=== PATIENT | male | born 1935 | race Hispanic/Latino ===

== ENCOUNTER 2017-07-12 02:45 | Inpatient (IN) | payer MEDICARE ==
[2017-07-12 03:38] LABS: #Eosinphils 0.3 thou/uL (0.0-0.7); #Lymphocytes 1.6 thou/uL (1.20-3.40); #Monocytes 0.9 thou/uL (0.11-0.59); #Neutrophils 7.8 thou/uL (1.40-6.50); %Basophils 0.1 % (0.0-1.0); %Eosinophils 2.9 % (0.0-10.0); %Lymphocytes 15.1 % (21.0-51.0); %Monocytes 8.4 % (0.0-10.0); Hematocrit 40.9 % (42.0-52.0); Mean Platelet Volume 8.3 fL (7.4-10.4); Red Blood Cell (RBC) Count 3.98 mill/uL (4.70-6.10); White Blood Cell (WBC) Count 10.7 thou/uL (4.8-10.8)
[2017-07-12 04:01] LABS: Bilirubin Negative (Negative); Blood, Urine Large (Negative); Glucose, Urine (Dipstick) 100 mg/dL (Negative); Ketone, Urine 15 mg/dL (Negative); Nitrite Positive (Negative); Protein, Urine (Dipstick) > or equal to 300 mg/dL (Neg-Trace); Urobilinogen > or = 8.0 mg/dL (0.2-1.0)
[2017-07-12 04:03] LABS: ALT (SGPT) 13 U/L (8-55); AST (SGOT) 14 U/L (5-34); Alkaline Phosphatase 131 U/L (40-150); Anion Gap 13 mmol/L (10-20); BUN (Urea Nitrogen) 27 mg/dL (8.4-25.7); Bilirubin, Total 0.5 mg/dL (0.2-1.2); Calc. Creatinine Clearance 0 mL/min (70-130); Calcium 9.6 mg/dL (7.8-10.44); Carbon Dioxide 28 mmol/L (23-31); Chloride 102 mmol/L (98-107); Estimated GFR-MDRD 45; Protein, Total 7.4 g/dL (5.8-8.1)
[2017-07-12 04:05] LABS: Bacteria/HPF 1+ HPF (None Seen); Hyaline Casts/LPF NONE SEEN LPF (0-3 Hyaline); RBC/HPF GREATER THAN 50-TNTC HPF (0-3); Squamous Epithelial None Seen HPF (0-3); WBC/HPF 21-50 HPF (0-3)
[2017-07-12 06:38] LABS: #Lymphocytes 0.8 thou/uL (1.20-3.40); #Monocytes 0.8 thou/uL (0.11-0.59); #Neutrophils 10.9 thou/uL (1.40-6.50); %Basophils 0.1 % (0.0-1.0); %Eosinophils 0.3 % (0.0-10.0); %Monocytes 6.4 % (0.0-10.0); Hematocrit 37.5 % (42.0-52.0); Red Blood Cell (RBC) Count 3.66 mill/uL (4.70-6.10); White Blood Cell (WBC) Count 12.5 thou/uL (4.8-10.8)
[2017-07-12 06:44] LABS: Prothrombin Time 13.9 SEC (12.0-14.7)
[2017-07-12] MEDS ORDERED: Fentanyl 100 MCG/2 ML VIAL ONE (07:49)
[2017-07-12] MEDS ORDERED: Levofloxacin 500 mg/D5W 100 ml Premix Bag ONE (08:09)
--- NOTE | 2017-07-12 08:10 | CT ---
CT ABDOMEN AND PELVIS NONCONTRAST: HISTORY: Hematuria. COMPARISON: 05/21/14. FINDINGS: Each renal collecting system and ureter are decompressed. Calcifications at each renal hilum are fav ored to be vascular in origin. Lobulated exophytic cyst at the superior pole of the right kidney is similar in appearance to the prior exam. Lack of contrast limits evaluation for other abnormalities. Within the superior aspect of the urinar y bladder, a lobulated heterogeneous hyperdense lesion measures up to 7.7 cm greatest oblique diamete r on the axial images. It is at the posterior aspect of the urinary bladder. The prostate gland remains heterogeneous, enlarged, and contains dystrophic calcification. There are degenerative changes of the lumbar spine. 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 IMPRESSION: 1. The large lobulated hyperdense lesion within the posterior superior aspect of the urinary bladder likely represents hemorrhage primarily, although an underlying mucosal based lesion could easily be present. No urinary tract obstruction or calcification are reliably demonstrated. Please consider u rologic evaluation. 2. Atherosclerosis. 3. Chronic-type findings are otherwise stable. POS: EDEN
--- NOTE | 2017-07-12 08:35 | CON ---
DATE OF CONSULTATION: 07/12/2017 PRIMARY CARE PHYSICIAN: Angeles Delgadillo M.D. MANAGER ONCOLOGY: Claudia Lu M.D. REASON FOR CONSULT: Hemorrhagic cystitis with clot retention. HISTORY OF PRESENT ILLNESS: Mr. Nieto is an 81-year-old male with history of BPH, however, patient denies prior history of urinary retention, history of coronary artery disease, who presented to the emergency room with 1 day history of acute gross hematuria. He denies history of dysuria, fever, nausea or vomiting. He denies history of prostate cancer. at bedside. Urine has selma hematuria, CT of the abdomen and pelvis was obtained per my request on stone contrast due to renal insufficiency demonstrating large mass, likely clot in the bladder with no significant hydronephrosis. This is a prelim read by me as Radiology read is pending thus far. The patient was seen at bedside, emergent Urology consultation obtained as he presented with blood pressure 86/ 50. As there is concern for anemia due to hemorrhagic cystitis, emergent consultation was obtained. Upon assessment, patient currently appears comfortable. I attempted to place a Lawrence catheter. There was some resistance at the meatus passing a 22 Polish catheter; however, I was able to pass the catheter to the level of the bladder and had difficulty irrigating due to clot retention demonstrating selma dark hematuria. PAST MEDICAL HISTORY: Coronary artery disease, GERD, hypertension, and hyperlipidemia. PAST SURGICAL HISTORY: CABG, left ankle surgery by Dr. Abdullahi. SOCIAL HISTORY: Ex-smoker. He quit approximately 20 years ago after he underwent a CABG. He previously smoked at least 2 packs per day. Prior use of alcohol use, whiskey every night. Denies illicit drug use. Lives with his . ALLERGIES: He is allergic to PENICILLIN. REVIEW OF SYSTEMS: Ten point review of systems as above, otherwise noncontributory. PHYSICAL EXAMINATION: CURRENT VITAL SIGNS: 101/53, 65, 16, 95% on room air. GENERAL: Patient is resting comfortably. HEENT: Unremarkable. HEART: Regular rate. LUNGS: Clear. ABDOMEN: Soft. There is no gross suprapubic tenderness on exam. GENITOURINARY: Uncircumcised phallus, meatus is grossly unremarkable. Testes descended. Prostate does demonstrate large volume greater than 40-50 grams, mildly diffusely firm. No fluctuance is appreciated. EXTREMITIES: No cyanosis, clubbing or edema. LABORATORY DATA: White count 12, hemoglobin 12.3, platelet 173. INR is 1.1. INR is 1.1. Urinalysis red, positive nitrites, greater than 50 rbc's, 20-50 wbc 's, no epithelial, 1+ bacteria. INR is 1.1, PTT of 33. BEDSIDE PROCEDURE: A 22 Polish 3-way Lawrence catheter was placed, it did have some resistance passing at the level of the meatus, however, able to make to the level of the bladder with selma hematuria. Difficulty irrigating the catheter due to clot retention. CBI tubing was attached; however, not started. CT of the abdomen and pelvis final read pending. There is no gross evidence of hydronephrosis, prostate volume approximately 40-50 grams with prostatic calcification. There is a very large filling defect in the bladder, likely consistent with clot; however, I cannot rule out other pathology such as bladder tumor. IMPRESSION/PLAN: 1. Mr. Nieto is an 81-year-old male with history of coronary artery disease. 2. Hypertension. 3. Hyperlipidemia. 4. Status post coronary artery bypass graft, who presents with a 1 day history of gross hematuria. Currently, patient's hemoglobin is stable; however, he had hypotensive episode, improved. His coagulation profile is unremarkable. As he has significant clots within the bladder, I cannot rule out other pathology such as bladder tumor. Due to inability to efficiently irrigate his bladder, advised regarding cystoscopy, evacuation of clots, transurethral resection of the prostate, transurethral resection of bladder tumor if clinically indicated. Patient has been n.p.o. He is typed and crossed. Broad-spectrum antibiotic oncall to OR. MTDD
[2017-07-12] MEDS ORDERED: hydrALAZINE 20 MG/ML VIAL SLOW IVP PRN ×4 (09:40→12:46)
[2017-07-12] MEDS ORDERED: Bisacodyl 10 MG SUPP PR PRN ×2 (09:40→12:46)
[2017-07-12] MEDS ORDERED: HYDROcodone/Acetaminophen 7.5/325 mg Tablet PO PRN ×4 (09:40→12:47)
[2017-07-12] MEDS ORDERED: Morphine 4 MG/ML Carpuject IVP PRN (09:40)
[2017-07-12] MEDS ORDERED: Mag-Al 1200 mg/1200 mg/30 ML UDCUP PO PRN ×2 (09:40→12:46)
[2017-07-12] MEDS ORDERED: Sodium Chloride 0.9% 1,000 ML IV SCH ×2 (09:45→13:00)
--- NOTE | 2017-07-12 10:15 | OP ---
DATE OF PROCEDURE: 07/12/2017 PREOPERATIVE DIAGNOSES: An 81-year-old male with history of coronary artery disease who presents with acute onset of gross hematuria with clot retention. POSTOPERATIVE DIAGNOSES: An 81-year-old male with history of coronary artery disease who presents with acute onset of gross hematuria with clot retention. PROCEDURES PERFORMED: Cystoscopy, evacuation of bladder clots, fulguration of prostatic bleed, channel TURP, meatal calibration 22 [place] dilated to 32 [place] Erica sounds SURGEON: Elke Givens D.O. ANESTHESIA: General. IV FLUIDS: 800 mL. ESTIMATED BLOOD LOSS: Approximately 50 mL. DRAINS: 24 [place] 30 mL, with 40 mL insufflated to gravity, CBI with clear output. COMPLICATIONS: None apparent. SPECIMEN: Transurethral resection of the prostate. INDICATIONS FOR THE PROCEDURE AND HISTORY: Mr. Nieto is an 81-year-old male with history of coronary artery disease status post CABG, who presented with acute onset of gross hematuria. He denied history of dysuria, prior history of urinary retention. CT demonstrated large heterogenous filling defect consistent with clot versus possible other etiology such as malignancy could not be ruled out. He had an episode of hypotension. Due to large clots, inablility to irrigate at bedside, advised re emergent evacuation of clots and exam under anesthesia advised. Risks and complications of the procedure was reviewed with patient and in detail including, but not limited to, bleeding, pain, infection, injury to adjacent organs, urosepsis, bladder/ ureteral injury, sepsis reviewed. All questions were answered to his satisfaction and he desires to proceed. DESCRIPTION OF THE PROCEDURE: After an informed consent is signed, the patient is taken to the operating room. He was provided with broad spectrum antibiotics. He underwent a meatal dilatation, as I did have difficulty passing a 20 [place] catheter at bedside. The meatus was calibrated from 22-32 [place] uneventfully. A 21-[place] cystoscope was subsequently passed without any issues. The prostatic urethra demonstrated moderately obstructing prostate with a small component of high median bar and a small intravesical median lobe. The bladder was entered. I could not see, because there was a large amount of adherent clot. Therefore, I did transition to a 26-[place] resectoscope with a visual obturator. Using the Gene evacuator, we evacuated a large amount of clots. We repeated the cystoscopy with a gyrus resectoscope. I did not see any bladder masses. The source of bleeding appeared to be coming from the bladder neck /prostatic oozing. I tried to fulgurate the bladder neck/prostate however, this did not adequately take care of the prostatic bleed. Therefore, I did perform a channel TURP obtaining hemostasis of the deeper tissue. At the end of the procedure, the bladder neck was open with no significant source of bleeding residual. Prostatic urethra was fulgurated as needed . Cystoscopy after fulguration channel TURP demonstrated normal bladder mucosa with no evidence of intravesical bladder mass or stone. UOs were kept at a harm's way, well away from the bladder neck. After the procedure, all prostatic chips were evacuated with the Medialets evacuator and sent for pathologic specimen. A 24- [place] three-way Lawrence catheter was able to be passed without difficulty. A 40 mL was insufflated into the balloon. He was placed on gravity with CBI demonstrating clear output. He will be continued on CBI, urine culture is pending from the emergency room. We will continue to monitor CBC, BMP. MTDD
[2017-07-12 10:41] LABS: #Lymphocytes 0.6 thou/uL (1.20-3.40); #Monocytes 0.4 thou/uL (0.11-0.59); #Neutrophils 12.6 thou/uL (1.40-6.50); %Basophils 0.2 % (0.0-1.0); %Eosinophils 0.1 % (0.0-10.0); %Lymphocytes 4.4 % (21.0-51.0); %Monocytes 3.2 % (0.0-10.0); Hematocrit 39.2 % (42.0-52.0); Mean Platelet Volume 7.9 fL (7.4-10.4); Red Blood Cell (RBC) Count 3.82 mill/uL (4.70-6.10); White Blood Cell (WBC) Count 13.7 thou/uL (4.8-10.8)
[2017-07-12] MEDS ORDERED: Glycopyrrolate 0.2 MG/ML 5 ML SYRINGE ONE (10:49)
[2017-07-12] MEDS ORDERED: Ondansetron HCl/PF 4 MG/2 ML Vial ONE (10:49)
[2017-07-12] MEDS ORDERED: PHENYLEPHRINE-NS 100 MCG/ML 10 ML SYRINGE ONE (10:49)
[2017-07-12] MEDS ORDERED: Lidocaine 1% PF 5 ML VIAL ONE (10:49)
[2017-07-12] MEDS ORDERED: Dexamethasone 20 MG/5 ML VIAL ONE (10:49)
[2017-07-12] MEDS ORDERED: Propofol 200 MG/20 ML VIAL ONE (10:49)
[2017-07-12 10:59] LABS: Anion Gap 10 mmol/L (10-20); BUN (Urea Nitrogen) 24 mg/dL (8.4-25.7); Calc. Creatinine Clearance 0 mL/min (70-130); Calcium 8.9 mg/dL (7.8-10.44); Carbon Dioxide 27 mmol/L (23-31); Chloride 105 mmol/L (98-107); Estimated GFR-MDRD 59
[2017-07-12] MEDS ORDERED: HYDROcodone/Acetaminophen 5/325 mg Tablet PO PRN (12:42)
[2017-07-12] MEDS ORDERED: Ondansetron HCl/PF 4 MG/2 ML Vial IVP PRN (12:42)
[2017-07-12] MEDS ORDERED: Morphine 4 MG/ML VIAL SLOW IVP PRN ×2 (12:47→12:48)
[2017-07-12 13:37] LABS: Troponin I 0.011 ng/mL (< 0.028)
--- NOTE | 2017-07-12 13:38 | HP ---
CHIEF COMPLAINT: Blood in the urine. HISTORY OF PRESENT ILLNESS: This is an 81-year-old pleasant gentleman with a history of BPH, came in to the hospital with blood in the urine. He says that he was apparently okay for about a day or two, but he had some difficulty urinating the last couple of days, but yesterday in the evening when he w ent to pee, he had some burning sensation and saw some blood in the urine. He was concerned and lisa buenrostro came to the hospital for further evaluation and treatment. A CT scan of the abdomen and pelvis was done with stone protocol was done that showed a large amount of mass, likely clot in the bladder wit h no significant hydronephrosis. Dr. Elke Givens was consulted in the ER and due to a brief ep isode of hypotension and concern of anemia due to hemorrhagic cystitis, the patient underwent cystosc opy with clearing of the clots, and fulguration of the prostate. The patient has been admitted for o bservation of the hemoglobin and for continuous bladder irrigation. The patient denies any fever or chills at this point. PAST MEDICAL HISTORY: GERD, hyperlipidemia, hypertension, coronary artery disease, status post CABG. PAST SURGICAL HISTORY: Left foot surgery, CABG. SOCIAL HISTORY: Ex-smoker, quit 20 years ago. Previously smoked 2 packs per day. Prior use of alco hol, drinks whiskey every night. Denies illicit drug use. Lives with . ALLERGIES: PENICILLIN and RANOLAZINE. MEDICATIONS: Please see MAR. FAMILY HISTORY: Negative for diabetes and hypertension. REVIEW OF SYSTEMS: Significant for hematuria, otherwise no fever, no chills, no headache, no appetit e changes. No cough, no chest pain, diarrhea, dysuria or polyuria. No memory or mood changes. No n odalys pain. PHYSICAL EXAMINATION: VITAL SIGNS: Blood pressure right now is 149/68, temperature afebrile, respirations 20, pulse is 82. GENERAL: Patient is lying in bed in no apparent distress. HEENT: Atraumatic and normocephalic. Pupils equally round, react to light. Extraocular movements i ntact. Mucous membranes moist. NECK: No JVD. CHEST: Breath sounds heard. There are no rales or rhonchi. HEART: S1, S2, no murmurs or gallops. ABDOMEN: Soft. EXTREMITIES: No cyanosis, clubbing or edema. Distal pulses present. NEUROLOGIC: Alert, awake, oriented. No cranial deficits. No sensorimotor deficits. LABORATORY DATA: WBC count is 12.5, hemoglobin is 12.3. UA shows nitrite, WBC in the urine 21-50. Potassium is 3.9, creatinine is 1.19. The patient's EKG shows some nonspecific ST-T wave changes, he is in normal sinus rhythm, rate 81. ASSESSMENT AND PLAN: 1. Hematuria, status post cystoscopy with clearing of the clots, and fulguration of the prostate. W e will continue CBI. Hold aspirin and monitor H&H, transfuse as needed. 2. Anemia, combination of megaloblastic and acute blood loss anemia. We will transfuse as needed an d monitor H&H. 3. Urinary tract infection. Do urinary cultures and put the patient on Levaquin. 4. Coronary artery disease status post coronary artery bypass graft. Check troponins. The patient has no chest pain at the present moment. Evidence of hypertension has resolved. 5. Sequential compression devices for deep venous thrombosis prophylaxis. 6. Gastroesophageal reflux disease, stable. 7. Hyperlipidemia, stable. I will work with Dr. Givens in further caring for the patient.
[2017-07-12 14:14] LABS: Hematocrit 38.3 % (42.0-52.0)
[2017-07-12] MEDS: Sodium Chloride 0.9% 1,000 ML IV SCH (14:51)
[2017-07-12 19:29] LABS: Troponin I Less than 0.010 ng/mL (< 0.028)
[2017-07-12] MEDS: Acetaminophen 325 MG TAB PO PRN (20:48)
[2017-07-12] MEDS: Docusate 100 MG CAP PO SCH (20:49)
[2017-07-12] MEDS ORDERED: Docusate 100 MG CAP PO SCH (21:00)
[2017-07-12 22:25] LABS: Hematocrit 35.7 % (42.0-52.0)
[2017-07-13] MEDS: Sodium Chloride 0.9% 1,000 ML IV SCH (00:07)
[2017-07-13] MEDS: Acetaminophen 325 MG TAB PO PRN (03:23)
[2017-07-13 05:36] LABS: #Lymphocytes 1.2 thou/uL (1.20-3.40); #Monocytes 1.5 thou/uL (0.11-0.59); #Neutrophils 10.8 thou/uL (1.40-6.50); %Basophils 0.1 % (0.0-1.0); %Eosinophils 0.1 % (0.0-10.0); %Lymphocytes 8.9 % (21.0-51.0); %Monocytes 10.8 % (0.0-10.0); Hematocrit 35.9 % (42.0-52.0); Mean Platelet Volume 8.4 fL (7.4-10.4); Red Blood Cell (RBC) Count 3.54 mill/uL (4.70-6.10); White Blood Cell (WBC) Count 13.5 thou/uL (4.8-10.8)
[2017-07-13 05:46] LABS: Anion Gap 10 mmol/L (10-20); BUN (Urea Nitrogen) 19 mg/dL (8.4-25.7); BUN/Creatinine Ratio 16.96; Calc. Creatinine Clearance 62 mL/min (70-130); Calcium 8.8 mg/dL (7.8-10.44); Carbon Dioxide 25 mmol/L (23-31); Chloride 107 mmol/L (98-107); Estimated GFR-MDRD 63; Phosphorus 2.7 mg/dL (2.3-4.7)
[2017-07-13] MEDS: Dutasteride 0.5 MG CAP PO SCH (08:27)
[2017-07-13] MEDS: Docusate 100 MG CAP PO SCH ×2 (08:27→20:26)
[2017-07-13] MEDS: Tamsulosin HCl 0.4 MG CAP PO SCH (08:28)
--- NOTE | 2017-07-13 08:37 | PRG ---
DATE OF SERVICE: 07/13/2017 INPATIENT GENITOURINARY PROGRESS NOTE SUBJECTIVE: The patient is doing well. PHYSICAL EXAMINATION: VITAL SIGNS: T-max of 99.9, 98, 68, 16, 94, 177/73. ABDOMEN: Soft, nontender, nondistended. GENITOURINARY: Lawrence catheter demonstrates a very low CBI with lavern pink- tinged urine. PERTINENT LABORATORY DATA: White blood cell count 13, hemoglobin 11.7, presented with hemoglobin of 12.3. Coagulation profile: INR is 1.1. Renal function stable at 1.12. Urine culture is pending. On Levaquin. IMPRESSION AND PLAN: Mr. Nieto is an 81-year-old male who presented with gross hematuria, clot retention, status post cystoscopy, evacuation of clots, fulguration of prostatic bleed, transurethral resection of prostate channel. His hemoglobin has decreased somewhat, however, possibility of hemodilution effect cannot be completely excluded as his urine output is relatively clear on low rate continuous bladder irrigation. Continue to monitor CBC. Await final urine culture. Continue antibiotic therapy/ IVF as there is a urinary tract infection component to his gross hematuria. Continue Lawrence catheter for now, we will hold continuous bladder irrigation and monitor urine output. Continue Flomax and Avodart. MTDD
[2017-07-13] MEDS ORDERED: Tamsulosin HCl 0.4 MG CAP PO SCH (09:00)
[2017-07-13] MEDS: Isosorbide Mononitrate 20 MG TAB PO SCH (12:51)
[2017-07-13 13:46] LABS: Hematocrit 35.8 % (42.0-52.0)
--- NOTE | 2017-07-13 13:50 | PQF ---
CLINICAL DOCUMENTATION IMPROVEMENT CLARIFICATION FORM: ICD-10 Updated PLEASE DO AN ADDENDUM TO THE PROGRESS NOTE WITH ANY DOCUMENTATION UPDATES OR ADDITIONS AND CARRY THROUGH TO DC SUMMARY. THANK YOU. DATE: 07/13 ATTN : DR. Lynette CHANDRA Please exercise your independent, professional judgment in responding to the clarification form. Clinical indicators are provided on the bottom of this form for your review Please check appropriate box(s): [ ] Acute Renal Failure (ARF) / Acute Kidney Injury (LAUREN) [ ] Other Etiology or underlying conditions related to the diagnosis of ARF/ LAUREN: [ ] Acute on Chronic Renal Failure please specify Stage of CKD (see below) [ ] CKD without ARF/LAUREN please specify Stage of CKD [ ] Other diagnosis [ ] Unable to determine National Kidney Foundation Guidelines for CKD Staging Stage I Kidney damage with normal or increased GFR GFR > 90 Stage II Kidney damage with mildly decreased GFR GFR 60-89 Stage III Kidney damage with moderately decreased GFR GFR 30-59 Stage IV Kidney damage with severely decreased GFR GFR 16-29 Stage V Kidney failure GFR<15 ESRD End Stage Renal Disease On dialysis For continuity of documentation, please document condition throughout progress notes and discharge summary. Thank You. CLINICAL INDICATORS - SIGNS / SYMPTOMS / LABS BUN: 27 CR: 1.50 GFR: 45 (ON ADMIT, 07/12) 24 1.19 59 (07/12) 19 1.12 63 (07/13) RISK FACTORS: UTI W/GROSS HEMATURIA ACUTE BLOOD LOSS ANEMIA TREATMENTS: IVF (NS 07/12 - PRESENT) IV ANTIBIOTIC (LEVAQUIN 07/12 - PRESENT) THANK YOU! Annalisa (This form is maintained as a part of the permanent medical record) 2014 [employer] All Rights Reserved Annalisa Dorsey RN, BSN [email or web address] Office: [phone] [facility]
--- NOTE | 2017-07-13 16:01 | PDOC.PN ---
- Subjective Encounter Start Date: 07/13/17 Encounter Start Time: 16:00 Patient seen and examined. No new complaints. No overnight events - Objective MAR Reviewed: Yes Vital Signs & Weight: Vital Signs (12 hours) Temp Pulse Resp BP Pulse Ox 07/13/17 11:36 97.7 F 69 16 133/71 98 07/13/17 08:00 99.2 F 66 16 96 07/13/17 07:09 99.2 F 66 16 157/66 H 96 Weight Weight 190 lb I&O: 07/12/17 07/13/17 07/14/17 06:59 06:59 06:59 Output Total 2325 Balance -2325 Result Diagrams: 07/13/17 13:36 07/13/17 05:18 Additional Labs: Accuchecks 07/13/17 07/12/17 05:15 20:58 POC Glucose 117 H 113 H Phys Exam - Physical Examination Constitutional: NAD HEENT: PERRLA Neck: no JVD Respiratory: no wheezing Cardiovascular: RRR Gastrointestinal: non-tender Musculoskeletal: no edema Neurological: normal sensation, moves all 4 limbs Psychiatric: A&O x 3 Dx/Plan (1) Hematuria Code(s): R31.9 - HEMATURIA, UNSPECIFIED Status: Acute (2) UTI (urinary tract infection) Status: Acute (3) Renal failure (ARF), acute on chronic Code(s): N17.9 - ACUTE KIDNEY FAILURE, UNSPECIFIED; N18.9 - CHRONIC KIDNEY DISEASE, UNSPECIFIED Status: Acute (4) CAD (coronary artery disease) Code(s): I25.10 - ATHSCL HEART DISEASE OF [place] CORONARY ARTERY W/O ANG PCTRS Status: Chronic (5) GERD (gastroesophageal reflux disease) Code(s): K21.9 - GASTRO-ESOPHAGEAL REFLUX DISEASE WITHOUT ESOPHAGITIS Status: Chronic (6) HLD (hyperlipidemia) Code(s): E78.5 - HYPERLIPIDEMIA, UNSPECIFIED Status: Chronic (7) HTN (hypertension) Code(s): I10 - ESSENTIAL (PRIMARY) HYPERTENSION Status: Chronic Qualifiers: - Plan * cont abx * f/u culture of urine * cont current care * f/u urology plan * f/u h/h
[2017-07-13 17:33] LABS: Anion Gap 10 mmol/L (10-20); BUN (Urea Nitrogen) 17 mg/dL (8.4-25.7); Calc. Creatinine Clearance 63 mL/min (70-130); Calcium 9.4 mg/dL (7.8-10.44); Carbon Dioxide 28 mmol/L (23-31); Chloride 102 mmol/L (98-107); Estimated GFR-MDRD 63
[2017-07-13 23:06] VITALS: BMI 29.7
[2017-07-14] MEDS ORDERED: Mag-Al 1200 mg/1200 mg/30 ML UDCUP PO SCH (05:00)
[2017-07-14 05:17] LABS: #Eosinphils 0.1 thou/uL (0.0-0.7); #Lymphocytes 1.7 thou/uL (1.20-3.40); #Monocytes 1.1 thou/uL (0.11-0.59); #Neutrophils 10.5 thou/uL (1.40-6.50); %Basophils 0.2 % (0.0-1.0); %Eosinophils 0.7 % (0.0-10.0); %Lymphocytes 12.5 % (21.0-51.0); %Monocytes 8.2 % (0.0-10.0); Mean Platelet Volume 8.1 fL (7.4-10.4); Red Blood Cell (RBC) Count 3.83 mill/uL (4.70-6.10); White Blood Cell (WBC) Count 13.4 thou/uL (4.8-10.8)
[2017-07-14 06:17] LABS: Troponin I Less than 0.010 ng/mL (< 0.028)
--- NOTE | 2017-07-14 08:17 | PRG ---
DATE OF SERVICE: 07/14/2017 SUBJECTIVE: The patient without complaints. OBJECTIVE: VITAL SIGNS: Stable. I's and O's, CBI held for 24 hours with clear yellow urine, 3350 in, and 5700 out. ABDOMEN: Soft, nontender, nondistended. GENITOURINARY: Lawrence catheter removed for voiding trial. We will continue to monitor his voiding st atus. IMAGING: Urine culture negative thus far. Pathology grossly negative for prostatic malignancy. IMPRESSION/PLAN: Mr. Nieto is an 81-year-old male who presented with clot retention, gross hematu ivory, status post channel transurethral resection of the prostate, evacuation of clots, fulguration of prostatic bleed. His urine output has been clear for 24 hours. Lawrence catheter removed. H&H is sta ble. We will continue to monitor his voided urine at bedside. Continue antibiotic regimen, Flomax, Avodart. No aspirin, ibuprofen products advised due to presenting pathology of hematuria with clot r etention.
[2017-07-14] MEDS ORDERED: Bisacodyl 10 MG SUPP PR PRN (08:19)
[2017-07-14] MEDS: Docusate 100 MG CAP PO SCH ×2 (08:32→21:32)
[2017-07-14] MEDS: Dutasteride 0.5 MG CAP PO SCH (08:32)
[2017-07-14] MEDS: Isosorbide Mononitrate 20 MG TAB PO SCH (08:32)
[2017-07-14] MEDS: Tamsulosin HCl 0.4 MG CAP PO SCH (08:33)
[2017-07-14] MEDS ORDERED: Bisacodyl 10 MG SUPP PR SCH (10:45)
[2017-07-14 11:39] LABS: Troponin I 0.164 ng/mL (< 0.028)
--- NOTE | 2017-07-14 12:38 | EKG ---
Test Reason : STAT Blood Pressure : / mmHG Vent. Rate : 086 BPM Atrial Rate : 086 BPM P-R Int : 172 ms QRS Dur : 090 ms QT Int : 380 ms P-R-T Axes : 059 -05 019 degrees QTc Int : 454 ms Normal sinus rhythm Abnormal ECG Confirmed by BUBBA APPIAH ([id number]) on 07/14/2017 12:37:53 PM Referred By: KINZA Confirmed By:BUBBA APPIAH
[2017-07-14 14:03] LABS: Anion Gap 12 mmol/L (10-20); BUN (Urea Nitrogen) 17 mg/dL (8.4-25.7); Calc. Creatinine Clearance 69 mL/min (70-130); Calcium 8.9 mg/dL (7.8-10.44); Carbon Dioxide 21 mmol/L (23-31); Chloride 101 mmol/L (98-107); Estimated GFR-MDRD 71
[2017-07-14 14:08] LABS: Troponin I 0.285 ng/mL (< 0.028)
--- NOTE | 2017-07-14 14:52 | PDOC.PN ---
- Subjective Encounter Start Date: 07/14/17 Encounter Start Time: 14:51 had chest pain and high bp last night trop are elevated no cp now at present time no n/v urine clean no f/c - Objective MAR Reviewed: Yes Vital Signs & Weight: Vital Signs (12 hours) Temp Pulse Resp BP BP Pulse Ox 07/14/17 11:05 97.9 F 75 20 133/65 97 07/14/17 07:00 99 F 74 16 126/59 L 95 07/14/17 04:20 98.9 F 72 15 96 07/14/17 03:57 79 123/63 07/14/17 03:21 74 183/69 H Weight Weight 190 lb I&O: 07/13/17 07/14/17 07/15/17 06:59 06:59 06:59 Intake Total 3350 Output Total 6239 3020 Balance -8841 -5247 Result Diagrams: 07/14/17 04:43 07/14/17 13:22 Phys Exam - Physical Examination Constitutional: NAD HEENT: PERRLA Neck: no JVD Respiratory: no wheezing Cardiovascular: no significant murmur Gastrointestinal: non-tender Musculoskeletal: pulses present Neurological: moves all 4 limbs Psychiatric: A&O x 3 Dx/Plan (1) Hematuria Code(s): R31.9 - HEMATURIA, UNSPECIFIED Status: Acute (2) UTI (urinary tract infection) Status: Acute (3) Renal failure (ARF), acute on chronic Code(s): N17.9 - ACUTE KIDNEY FAILURE, UNSPECIFIED; N18.9 - CHRONIC KIDNEY DISEASE, UNSPECIFIED Status: Acute (4) CAD (coronary artery disease) Code(s): I25.10 - ATHSCL HEART DISEASE OF [place] CORONARY ARTERY W/O ANG PCTRS Status: Chronic (5) GERD (gastroesophageal reflux disease) Code(s): K21.9 - GASTRO-ESOPHAGEAL REFLUX DISEASE WITHOUT ESOPHAGITIS Status: Chronic (6) HLD (hyperlipidemia) Code(s): E78.5 - HYPERLIPIDEMIA, UNSPECIFIED Status: Chronic (7) HTN (hypertension) Code(s): I10 - ESSENTIAL (PRIMARY) HYPERTENSION Status: Chronic Qualifiers: (8) Elevated troponin Code(s): R74.8 - ABNORMAL LEVELS OF OTHER SERUM ENZYMES Status: Acute - Plan * hematuria improving * consult cardiology for elevated trop * cont current mx
[2017-07-14 20:03] LABS: Troponin I 0.244 ng/mL (< 0.028)
[2017-07-15 01:27] LABS: Troponin I 0.196 ng/mL (< 0.028)
[2017-07-15 05:35] LABS: #Eosinphils 0.1 thou/uL (0.0-0.7); #Lymphocytes 1.2 thou/uL (1.20-3.40); #Monocytes 1.3 thou/uL (0.11-0.59); #Neutrophils 10.5 thou/uL (1.40-6.50); %Eosinophils 1.1 % (0.0-10.0); %Lymphocytes 9.2 % (21.0-51.0); %Monocytes 9.6 % (0.0-10.0); Hematocrit 37.1 % (42.0-52.0); Red Blood Cell (RBC) Count 3.64 mill/uL (4.70-6.10); White Blood Cell (WBC) Count 13.1 thou/uL (4.8-10.8)
--- NOTE | 2017-07-15 06:05 | CON ---
DATE OF CONSULTATION: 07/14/2017 REASON FOR CONSULTATION: Elevated troponin. REFERRING PROVIDER: Dr. Padgett. HISTORY OF PRESENT ILLNESS: Mr. Nieto is a very pleasant 81-year-old gentleman who is a patient o f Dr. Domingo Landin. He recently underwent cystoscopy with evacuation of bladder thrombus and mitchell sofya TURP. He says last evening, he had an episode of chest pain, it lasted less than 30 minutes. Th is occurred after given medication for hypertension. His symptoms are now resolved. His peak tropon in was 0.285. Again, he is currently pain free. PAST MEDICAL HISTORY: CAD, status post bypass surgery; acid reflux; hyperlipidemia; hypertension; le ft breast surgery. SOCIAL HISTORY: No current tobacco or alcohol use. ALLERGIES: PENICILLIN. FAMILY HISTORY: Negative for CAD. REVIEW OF SYSTEMS: Ten-point review of systems is reviewed and as above, otherwise negative. MEDICATIONS: Include aspirin, Crestor, Toprol, lisinopril, Imdur, and Flomax. PHYSICAL EXAMINATION: VITAL SIGNS: Blood pressure 151/63, pulse 75, temperature 92. GENERAL: Patient is a pleasant male who is in no acute distress. The patient appears his stated age . NEUROLOGIC: The patient is alert and oriented times 3 with no focal neurologic deficits. HEENT: Sclerae without icterus. Mouth has moist mucous membranes with normal pallor. NECK: No JVD. Carotid upstroke brisk. No bruits bilaterally. LUNGS: Clear to auscultation with unlabored respirations. BACK: No scoliosis or kyphosis. CARDIAC: Regular rate and rhythm with normal S1 and S2. No S3 or S4 noted. No significant rubs, mu rmurs, thrills, or gallops noted throughout the precordium. PMI is not displaced. There is no jeff ternal heave. ABDOMEN: Soft, nontender, nondistended. No peritoneal signs present. No hepatosplenomegaly. No ab normal striae. EXTREMITIES: 2+ femoral and 2+ dorsalis pedis pulses. No cyanosis, clubbing, or edema. SKIN: No gross abnormalities. PERTINENT LABORATORY DATA: As above. IMPRESSION: 1. Elevated troponin. 2. Chest pain. 3. Hypertension. RECOMMENDATIONS: I do not feel Mr. Nieto's symptoms are due to unstable angina. His symptoms are likely related to hypertensive crisis versus a reaction to medication for hypertension. He is curre ntly pain free. His troponin appears to have stabilized. I would recommend an echo with Doppler to assess LV function. Given recent clots in his bladder, we will avoid Plavix. Further recommendation s per Dr. Domingo Landin in the a.m.
--- NOTE | 2017-07-15 08:27 | PRG ---
DATE OF SERVICE: 07/15/2017 SUBJECTIVE: The patient without complaints, denies chest pain or shortness of breath. OBJECTIVE: VITAL SIGNS: T-max of 100.2, 76, 15, 96, and 144/67. I's and O's 3400 in and 4900 out. He is negative 1.5 liters. ABDOMEN: Soft, nontender, nondistended. GENITOURINARY: Lawrence catheter draining clear yellow urine. I did transition his catheter to a leg bag with extension tubing. Urine culture is negative at 48 hours. IMPRESSION AND PLAN: Mr. Nieto is a pleasant 81-year-old male, who presented with clot retention, gross hematuria status post fulguration of prostate, channel transurethral resection of the prostate. His Lawrence catheter has been draining clear since surgery, I did initiate a voiding trial and he had mild postvoid residual for approximately 320 mL, however, as this was an upper concern, I did replace his Lawrence catheter at bedside. A 16 [place] was passed without difficulty and continues to drain clear yellow urine. He voided on his own yesterday over 2 liters; however, his Lawrence catheter was replaced due to mild elevation of PVR. Due to low grade fever, I think it would be prudent to keep patient another 24 hours. Moreover, he is going to be evaluated by Dr. Landin. Dr. Bennett's consult appreciated. hopefully the patient will not require Plavix as there is concern regarding recurrent bleed. However, if there is a strong suspicion for cardiac event, will leave up to Cardiology regarding reinitiating anticoagulation. If suspicion low for cardiac event, I would prefer patient off antiplatelet therapy as he recently presented with clot retention/gross hematuria resolving. From a urologic perspective, he may be discharged home if afebrile for 24 hours. Recommend patient discharged with Flomax, Avodart, Levaquin for 14 days, Colace p.r.n., [place] 5/325 #50. I did write his prescription in chart. The patient and family were instructed regarding leg bag, gravity bag care. Followup appointment for a voiding trial provided next on 07/22/2017 at 8:45 a.m. I would be off service until next week, control systems engineer will provide coverage if needed. Anticipate patient can be discharged tomorrow if afebrile. [facility] MEDICAL CENTERGerhard
[2017-07-15] MEDS: Docusate 100 MG CAP PO SCH (09:04)
[2017-07-15] MEDS: Dutasteride 0.5 MG CAP PO SCH (09:04)
[2017-07-15] MEDS: Isosorbide Mononitrate 20 MG TAB PO SCH (09:05)
[2017-07-15] MEDS: Tamsulosin HCl 0.4 MG CAP PO SCH (09:05)
--- NOTE | 2017-07-15 13:56 | PDOC.PN ---
- Subjective Encounter Start Date: 07/15/17 Encounter Start Time: 13:55 Patient seen and examined. No new complaints. No overnight events - Objective MAR Reviewed: Yes Vital Signs & Weight: Vital Signs (12 hours) Temp Pulse Resp BP Pulse Ox 07/15/17 08:09 98.0 F 81 18 142/74 H 96 07/15/17 07:00 98 F 81 18 07/15/17 04:33 100.2 F H 76 15 144/67 H 96 Weight Weight 190 lb I&O: 07/14/17 07/15/17 07/16/17 06:59 06:59 06:59 Intake Total 3350 3400 Output Total 5700 4905 Balance -2350 -1505 Result Diagrams: 07/15/17 05:02 07/14/17 13:22 Phys Exam - Physical Examination Constitutional: NAD HEENT: PERRLA Neck: no JVD Respiratory: no wheezing Cardiovascular: no significant murmur Gastrointestinal: non-tender Musculoskeletal: pulses present Neurological: moves all 4 limbs Psychiatric: A&O x 3 Dx/Plan (1) Hematuria Code(s): R31.9 - HEMATURIA, UNSPECIFIED Status: Acute (2) UTI (urinary tract infection) Status: Acute (3) Renal failure (ARF), acute on chronic Code(s): N17.9 - ACUTE KIDNEY FAILURE, UNSPECIFIED; N18.9 - CHRONIC KIDNEY DISEASE, UNSPECIFIED Status: Acute (4) CAD (coronary artery disease) Code(s): I25.10 - ATHSCL HEART DISEASE OF [place] CORONARY ARTERY W/O ANG PCTRS Status: Chronic (5) GERD (gastroesophageal reflux disease) Code(s): K21.9 - GASTRO-ESOPHAGEAL REFLUX DISEASE WITHOUT ESOPHAGITIS Status: Chronic (6) HLD (hyperlipidemia) Code(s): E78.5 - HYPERLIPIDEMIA, UNSPECIFIED Status: Chronic (7) HTN (hypertension) Code(s): I10 - ESSENTIAL (PRIMARY) HYPERTENSION Status: Chronic Qualifiers: (8) Elevated troponin Code(s): R74.8 - ABNORMAL LEVELS OF OTHER SERUM ENZYMES Status: Acute - Plan * urology input appreciated * f/u card plan
[2017-07-15 17:12] VITALS: BP 156/69; TEMP 98.4
== END 2017-07-15 19:45 | disposition home or self-care (01) | DRG 713 ==
LOC: ERS 02:45 → SJJU 09:29 → ERS 09:58
PROVIDERS: ADMIT Internal Medicine; ATTEND Internal Medicine
PROC: 0VB08ZZ Excision of Prostate, Via Natural or Artificial Opening Endoscopic (ICD-10-PCS; principal; 2017-07-12)
PROC: 0TCB8ZZ Extirpation of Matter from Bladder, Via Natural or Artificial Opening Endoscopic (ICD-10-PCS; 2017-07-12)
PROC: 0T2BX0Z Change Drainage Device in Bladder, External Approach (ICD-10-PCS; 2017-07-15)
DX: N42.1 Congestion and hemorrhage of prostate (principal); D62 Acute posthemorrhagic anemia; N17.9 Acute kidney failure, unspecified; I95.9 Hypotension, unspecified; I24.8 Other forms of acute ischemic heart disease; D53.1 Other megaloblastic anemias, not elsewhere classified; R50.9 Fever, unspecified; N39.0 Urinary tract infection, site not specified; N13.8 Other obstructive and reflux uropathy; I16.9 Hypertensive crisis, unspecified; Z95.1 Presence of aortocoronary bypass graft; N40.1 Benign prostatic hyperplasia with lower urinary tract symptoms; I12.9 Hypertensive chronic kidney disease with stage 1 through stage 4 chronic kidney disease, or unspecified chronic kidney disease; N18.9 Chronic kidney disease, unspecified; N32.89 Other specified disorders of bladder; I25.10 Atherosclerotic heart disease of native coronary artery without angina pectoris; K21.9 Gastro-esophageal reflux disease without esophagitis; E78.5 Hyperlipidemia, unspecified; R74.8 Abnormal levels of other serum enzymes; Z79.82 Long term (current) use of aspirin; Z87.891 Personal history of nicotine dependence; Z91.19 Patient's noncompliance with other medical treatment and regimen
CPT/HCPCS: 36415; 36416; 51703; 74176; 80048; 80053; 80069; 81003; 81015; 82274; 82553; 84484; 85025; 85610; 86850; 86900; 86901; 87086; 88305; 93005; 93010; 93306; 96360; 96361; J0360; J1100; J1956; J2001; J2270; J2405; J2704; J3010

== ENCOUNTER 2017-08-24 16:37 | Outpatient (CLI) | payer MEDICARE | END 2017-08-24 16:38 | disposition home or self-care (01) | LOC: BICRAD 16:37 | PROVIDERS: ATTEND Internal Medicine | DX: R05 Cough (principal); I70.90 Unspecified atherosclerosis | CPT/HCPCS: 36415; 71046; 80053; 82607; 82728; 82746; 83540; 83550; 84443; 85027 ==

== ENCOUNTER 2017-10-08 13:04 | Emergency (ER) | payer MEDICARE ==
--- NOTE | 2017-10-08 15:06 | RAD ---
CHEST 1 VIEW: Date: 10/08/17 HISTORY: Fever. Chest pain. COMPARISON: 01/16/17 and 08/24/17. FINDINGS: Cardiac silhouette is magnified by projection. Pulmonary vasculature is unremarkable. Mediastinum is midline with postoperative changes and aortic calcification. No lobar consolidation or evidence of pn eumothorax. IMPRESSION: 1. COPD. 2. Atherosclerosis. POS: [facility]
[2017-10-08 15:14] LABS: Bilirubin Negative (Negative); Blood, Urine Large (Negative); Clarity TURBID (Clear); Glucose, Urine (Dipstick) Negative (Negative); Leukocyte Negative (Negative); Nitrite Negative (Negative); Protein, Urine (Dipstick) 300 mg/dL (Neg-Trace); Specific Gravity, Urine 1.016 (1.002-1.036)
[2017-10-08 15:16] LABS: Bacteria/HPF None Seen HPF (None Seen)
[2017-10-08 15:19] LABS: Pathc Cast-AUWi Flag 8.67 (0-2.49); Yeast-AUWi Flag 110.9 (0-25.0)
[2017-10-08 15:31] LABS: Yeast-All Forms None Seen HPF (None Seen)
[2017-10-08 15:39] LABS: Hyaline Casts/LPF 0-3 HYALINE CAST LPF (0-3 Hyaline); Manual Microscopic Reviewed? No Path Casts Seen; Renal Epithelial None Seen HPF (0-3); Transitional Epithelial NONE SEEN HPF (0-3)
[2017-10-08] MEDS ORDERED: Ondansetron HCl/PF 4 MG/2 ML Vial ONE (15:57)
[2017-10-08] MEDS ORDERED: Morphine 4 MG/ML VIAL ONE (15:58)
[2017-10-08] MEDS ORDERED: Apixaban 5 MG TAB PO SCH (16:15)
[2017-10-10] MEDS ORDERED: traMADol HCl 50 MG TAB PO PRN (09:47)
== END 2017-10-08 16:43 | disposition home or self-care (01) ==
LOC: ERS 13:04
DX: L03.116 Cellulitis of left lower limb (principal); I82.412 Acute embolism and thrombosis of left femoral vein; K21.9 Gastro-esophageal reflux disease without esophagitis; E78.5 Hyperlipidemia, unspecified; I10 Essential (primary) hypertension; M19.90 Unspecified osteoarthritis, unspecified site; Z87.891 Personal history of nicotine dependence; Z79.899 Other long term (current) drug therapy
CPT/HCPCS: 36415; 71045; 81003; 81015; 83605; 96374; 96375; J2270; J2405

== ENCOUNTER 2017-10-09 14:41 | Inpatient (IN) | payer MEDICARE ==
[2017-10-09 15:33] LABS: Hemoglobin 12.9 g/dL (14.0-18.0); Mean Corpuscular HGB CONC 33.3 g/dL (32.0-36.0); Mean Corpuscular Volume 99.2 fl (80.0-94.0); Mean Platelet Volume 9.4 fL (7.4-10.4); Platelet Count 123 thou/uL (130-400); RBC Distribution Width 12.6 % (11.5-14.5); Red Blood Cell (RBC) Count 3.89 mill/uL (4.70-6.10); White Blood Cell (WBC) Count 14.6 thou/uL (4.8-10.8)
[2017-10-09 15:54] LABS: ALT (SGPT) 11 U/L (8-55); AST (SGOT) 34 U/L (5-34); Albumin 2.9 g/dL (3.4-4.8); Alkaline Phosphatase 86 U/L (40-150); Anion Gap 18 mmol/L (10-20); BUN (Urea Nitrogen) 41 mg/dL (8.4-25.7); Bilirubin, Total 0.7 mg/dL (0.2-1.2); Calc. Creatinine Clearance 0 mL/min (70-130); Calcium 8.2 mg/dL (7.8-10.44); Carbon Dioxide 16 mmol/L (23-31); Chloride 98 mmol/L (98-107); Estimated GFR-MDRD 23; Globulin 3.1 g/dL (2.4-3.5); Glucose 94 mg/dL (83-110); Potassium 5.1 mmol/L (3.5-5.1); Sodium 127 mmol/L (136-145)
[2017-10-09 16:03] LABS: Band 29 % (5-11); Lymphocytes 8 % (21-51); MDiff Complete? YES; Monocytes 5 % (0-10); Neutrophil 58 % (42-75); PLT Morphology Comment Appears Decreased
--- NOTE | 2017-10-09 18:06 | RAD ---
LEFT KNEE FOUR VIEWS: 10/09/17 HISTORY: 81-year-old male with history of left knee and leg pain with swelling. There is essentially a nondisp laced slightly comminuted mostly transverse type fracture through the superior aspect of the patella. There is some lateral and anterior soft tissue swelling. Prominent vascular calcifications. The femu r, tibia and fibula appear intact. IMPRESSION: Slightly comminuted mostly transverse type fracture through the upper portion of the patella without significant abnormal displacement. Anterior and lateral soft tissue swelling. POS: ED[facility]
[2017-10-09] MEDS ORDERED: Acetaminophen 325 MG TAB PO PRN (18:43)
--- NOTE | 2017-10-09 19:35 | HP ---
ADMITTING PHYSICIAN: Dr. Charly Bowen. PRIMARY CARE PHYSICIAN: Dr. Delgadillo. CHIEF COMPLAINT: Left leg pain and swelling. HISTORY OF PRESENT ILLNESS: The patient is a pleasant 81-year-old gentleman who came to the [facility] yesterday complaining of left leg pain and swelling. The patient had an ultrasound that showed a DVT of the left leg. The patient also had blood cultures, which came back positive for gra m positive cocci 2/. The patient's and daughter brought him back tonight reporting that his le g is more swollen. They reported that the patient fell out of bed and was unable to stand and had mo re pain in his knee and leg after the fall. They denied loss of consciousness, fever, chills, nausea or vomiting. REVIEW OF SYSTEMS: The following complete review of systems was negative, unless otherwise mentioned in the HPI or below: Constitutional: Weight loss or gain, sense of well-being, ability to conduct usual activities, exerc ise tolerance. Skin/Breast: Rash, itching, changes in hair growth or loss, nail changes, breast lumps, tenderness, swelling, nipple discharge. Eyes: Vision, double vision, tearing, blind spots, pain. ENT/Mouth: Headaches (location, time of onset, duration, precipitating factors), vertigo, lightheade dness, injury. Vision, double vision, tearing, blind spots, pain, nose bleeding, colds, obstruction, discharge, dental difficulties, gingival bleeding, dentures, neck stiffness, pain, tenderness, masses in thyroid or other areas. Cardiovascular: Precordial pain, substernal distress, palpitations, syncope, dyspnea on exertion, or thopnea, nocturnal paroxysmal dyspnea, edema, cyanosis, hypertension, heart murmurs, varicosities, ph lebitis, claudication. Respiratory: Pain, shortness of breath, wheezing, stridor, cough, hemoptysis, fever or night sweats. Gastrointestinal: Poor appetite, dysphagia, indigestion, abdominal pain, heartburn, eructation, naus ea, vomiting, hematemesis, jaundice, constipation, or diarrhea, abnormal stools (sunita-colored, tarry, bloody, greasy, foul smelling), flatulence, hemorrhoids, recent changes in bowel habits. Genitourinary: Urgency, frequency, dysuria, nocturia, hematuria, polyuria, oliguria, unusual (or gerry nge in) color of urine, stones, hesitancy, change in size of stream, dribbling, acute retention or in continence, libido, potency. Musculoskeletal: Pain, swelling, redness or heat of muscles or joints, limitation, of motion, muscul ar weakness, atrophy, cramps. Neurologic/Psychiatric: Convulsions, paralyses, tremor, incoordination, paresthesias, difficulties w ith memory of speech, sensory or motor disturbances, or muscular coordination (ataxia, tremor), emoti onal problems, anxiety, depression, previous psychiatric care, unusual perceptions, hallucinations. Allergy/Immunologic: Skin rash, anemia, bleeding tendency, polydipsia, polyuria, intolerance to heat or cold. PAST MEDICAL HISTORY: Significant for GERD, dyslipidemia, hypertension and osteoarthritis. PAST SURGICAL HISTORY: Positive for orthopedic surgical repair of the left foot and ankle, coronary artery bypass x5 and prostate mass removed, 05/2017. PSYCHIATRIC HISTORY: No previous psych history. FAMILY HISTORY: Reviewed and noncontributory. SOCIAL HISTORY: The patient stopped smoking 20 years ago. Denies using illicit drugs. Continues to drink socially. DRUG ALLERGIES: MORPHINE causes hallucinations, PENICILLIN causes mouth to swell and RANOLAZINE caus es nausea. HOME MEDICATIONS: Ascorbic acid 1 gram q. day, vitamin D3 2000 units q. day, vitamin B12 1000 mcg q. day, iron sulfate 325 mg b.i.d., isosorbide mononitrate 30 mg q. day, metoprolol 25 mg q. day, Jonnie nix 40 mg b.i.d., Crestor 40 mg q. day, tamsulosin 0.4 mg every day, tramadol 50 mg q.4 hours, Eliqui s 5 mg b.i.d., Cleocin 300 mg t.i.d., ibuprofen 800 mg t.i.d. and Xarelto 50 mg b.i.d. PHYSICAL EXAMINATION: VITAL SIGNS: Temperature 97.6, pain 8/10, satting 96% on room air, pulse 87, respirations 28 and blo od pressure as measured in the emergency room a systolic blood pressure of 103/53. GENERAL: He is in no acute distress, nontoxic, alert and oriented x3. HEENT: Normocephalic and atraumatic. EYES: PERRL. Extraocular muscles intact. ENT: Nasal exam normal. No bleeding from the nares. Pharynx normal. Mouth normal. NECK: Supple. Trachea midline. No JVD. CARDIAC: Regular rate and rhythm. No murmurs, regurge or gallops. CHEST: Clear to auscultation bilaterally. No rhonchi. ABDOMEN: Nontender and nondistended. EXTREMITIES: On the right, no clubbing, cyanosis or edema. Left thigh is swollen and warm. Left lo wer limb is cool to touch. SKIN: Erythema in the left ankle. Once again, marked edema in the left lower extremity. LABORATORY AND IMAGING DATA: A knee x-ray performed in the ER shows a left-sided comminuted transver se type fracture to the upper portion of the patella without significant abnormal displacement with a nterior and lateral soft tissue swelling. CBC shows a white count of 14.6, hemoglobin 12.9, hematocr it 38.6 and platelets of 123,000. Chem-7 shows a sodium of 127, potassium 5.1, chloride 98, CO2 of 1 6, BUN 41, creatinine 2.67 and lactic acid 3.1. ASSESSMENT: 1. Sepsis. 2. Left lower extremity deep venous thrombosis. 3. Gram positive cocci bacteremia. 4. Hypotension. PLAN: The patient will be admitted to IMCU. We will provide fluid resuscitation. We will provide e mpiric antimicrobial therapy with vancomycin. We will obtain an Infectious Disease consult for furth er antimicrobial therapy. We will obtain orthopedic consult for fractured left patella. We will con tinue anticoagulation with Xarelto to treat his DVT and to prevent PE.
[2017-10-09 19:45] LABS: Lactic Acid 1.9 mmol/L (0.5-2.2)
[2017-10-09] MEDS: Rivaroxaban 15 MG TAB PO SCH (21:18)
[2017-10-09] MEDS: Sodium Chloride 0.9% 1,000 ML IV SCH (21:18)
[2017-10-10 04:37] LABS: Hemoglobin 11.4 g/dL (14.0-18.0); Mean Corpuscular HGB CONC 32.2 g/dL (32.0-36.0); Mean Corpuscular Hemoglobin 33.6 pg (27.0-31.0); Mean Platelet Volume 9.7 fL (7.4-10.4); Platelet Count 128 thou/uL (130-400); RBC Distribution Width 12.6 % (11.5-14.5); White Blood Cell (WBC) Count 11.1 thou/uL (4.8-10.8)
[2017-10-10 04:38] LABS: Band 20 % (5-11); Lymphocytes 4 % (21-51); MDiff Complete? YES; Monocytes 2 % (0-10); Neutrophil 74 % (42-75)
[2017-10-10 04:51] LABS: Anion Gap 16 mmol/L (10-20); BUN (Urea Nitrogen) 55 mg/dL (8.4-25.7); Calc. Creatinine Clearance 18 mL/min (70-130); Calcium 7.5 mg/dL (7.8-10.44); Carbon Dioxide 16 mmol/L (23-31); Chloride 99 mmol/L (98-107); Estimated GFR-MDRD 19; Glucose 88 mg/dL (83-110); Potassium 4.1 mmol/L (3.5-5.1); Sodium 127 mmol/L (136-145)
[2017-10-10] MEDS: Sodium Chloride 0.9% 1,000 ML IV SCH ×3 (05:52→19:15)
[2017-10-10] MEDS: Rivaroxaban 15 MG TAB PO SCH ×2 (08:39→20:18)
[2017-10-10] MEDS: Dutasteride 0.5 MG CAP PO SCH (08:39)
[2017-10-10] MEDS ORDERED: Lisinopril 20 MG TAB PO SCH (09:00)
[2017-10-10] MEDS ORDERED: Vancomycin HCl 1 GM in Premix Bag 1 BAG IVPB SCH (09:00)
[2017-10-10] MEDS ORDERED: traZODone HCl 50 MG TAB PO PRN (11:15)
[2017-10-10] MEDS ORDERED: Ibuprofen 800 MG TAB PO PRN (11:15)
--- NOTE | 2017-10-10 11:20 | PDOC.PN ---
- Subjective Encounter Start Date: 10/10/17 Encounter Start Time: 11:27 Subjective: No new complaints, other than L leg and knee pain -: No acute overnight events. - Objective Resuscitation Status: Resuscitation Status FULL:Full Resuscitation MAR Reviewed: Yes Vital Signs & Weight: Vital Signs (12 hours) Temp Pulse Resp BP BP Pulse Ox 10/10/17 08:39 137/64 10/10/17 07:29 97.5 F L 91 18 97 10/10/17 07:00 97.5 F L 91 22 H 117/61 95 10/10/17 03:51 97.6 F 78 17 91/50 L 96 10/09/17 23:57 97.0 F L 86 18 99/50 L 94 L Weight Weight 160 lb 3.2 oz I&O: 10/09/17 10/10/17 10/11/17 06:59 06:59 06:59 Intake Total 1200 240 Output Total 300 Balance 900 240 Result Diagrams: 10/10/17 03:47 10/10/17 03:47 Phys Exam - Physical Examination Constitutional: NAD HEENT: PERRLA, moist MMs, sclera anicteric Neck: no JVD, supple, full ROM Respiratory: no wheezing, no rales, no rhonchi, clear to auscultation bilateral Cardiovascular: RRR, no significant murmur, no rub Gastrointestinal: soft, non-tender, no distention, positive bowel sounds Musculoskeletal: no edema, pulses present Tenderness L knee and leg Neurological: non-focal, moves all 4 limbs Psychiatric: normal affect, A&O x 3 Skin: no rash, normal turgor Dx/Plan (1) Septic shock due to Gram positive bacteria Code(s): A41.89 - OTHER SPECIFIED SEPSIS; R65.21 - SEVERE SEPSIS WITH SEPTIC SHOCK Status: Acute Comment: Improving. Repeat cultures negative so far. Will continue fluids, Vancomycin and await ID recs. (2) Fracture of patella, left, closed Code(s): S82.002A - UNSP FRACTURE OF LEFT PATELLA, INIT FOR CLOS FX Status: Acute Qualifiers: Encounter type: subsequent encounter Fracture morphology: comminuted Fracture alignment: nondisplaced Fracture healing: with routine healing Qualified Code(s): S82.045D - Nondisplaced comminuted fracture of left patella, subsequent encounter for closed fracture with routine healing Comment: Ensure adequate pain control. Follow ortho recs. (3) Deep vein thrombosis (DVT) of left lower extremity Code(s): I82.402 - ACUTE EMBOLISM AND THOMBOS UNSP DEEP VEINS OF L LOW EXTREM Status: Acute Qualifiers: Affected thrombotic vein of extremity: femoral Chronicity: acute Qualified Code(s): I82.412 - Acute embolism and thrombosis of left femoral vein Comment: Continue Xarelto. (4) CAD (coronary artery disease) Code(s): I25.10 - ATHSCL HEART DISEASE OF [place] CORONARY ARTERY W/O ANG PCTRS Status: Chronic Qualifiers: Coronary Disease-Associated Artery/Lesion type: unspecified vessel or lesion type [place] vs. transplanted heart: [place] heart Associated angina: without angina Qualified Code(s): I25.10 - Atherosclerotic heart disease of [place] coronary artery without angina pectoris Comment: Stable. Chest pain free. Will gradually reintroduce his home meds. (5) HLD (hyperlipidemia) Code(s): E78.5 - HYPERLIPIDEMIA, UNSPECIFIED Status: Chronic Qualifiers: Hyperlipidemia type: unspecified Qualified Code(s): E78.5 - Hyperlipidemia , unspecified Plan: Continue statin. (6) HTN (hypertension) Code(s): I10 - ESSENTIAL (PRIMARY) HYPERTENSION Status: Chronic Qualifiers: Hypertension type: essential hypertension Qualified Code(s): I10 - Essential (primary) hypertension Comment: Will gradually reintroduce home regimen. (7) ARF (acute renal failure) Status: Acute Qualifiers: Acute renal failure type: unspecified Qualified Code(s): N17.9 - Acute kidney failure, unspecified Comment: Likely ATn from septic shock. Will hydrate and monitor. If worsening, will get renal consult. Likely has CKD. - Plan cont current plan of care, plan discussed w/ family, continue antibiotics Continue Xarelto -: Continue antibiotics. Follow ID, orthopedic consult recs * . Review of Systems - Medications/Allergies Allergies/Adverse Reactions: Allergies Allergy/AdvReac Type Severity Reaction Status Date / Time Penicillins Allergy Severe "lips Verified 01/17/17 07:01 swelled" morphine Allergy Intermediate Verified 10/09/17 23:01 ranolazine [From Ranexa] Allergy Nausea Verified 01/17/17 07:01 Medications: Current Medications Acetaminophen (Tylenol) 650 mg PO Q4H PRN PRN Reason: Headache/Fever or Pain Last Admin: 10/09/17 21:17 Dose: 650 mg Clonidine (Catapres) 0.1 mg PO BID [facility] Dutasteride (Avodart) 0.5 mg PO DAILY [facility] Last Admin: 10/10/17 08:39 Dose: 0.5 mg Sodium Chloride (Normal Saline 0.9%) 1,000 mls @ 100 mls/hr IV .Q10H [facility] Last Admin: 10/10/17 05:52 Dose: 1,000 mls Vancomycin HCl 1 gm/ Device 200 mls @ 200 mls/hr IVPB Q24HR [facility] Last Admin: 10/10/17 08:41 Dose: 200 mls Metoprolol Succinate (Toprol Xl) 100 mg PO QPM [facility] Last Admin: 10/09/17 21:18 Dose: Not Given Rivaroxaban (Xarelto) 15 mg PO BID [facility] Last Admin: 10/10/17 08:39 Dose: 15 mg
[2017-10-10] MEDS ORDERED: Sodium Chloride 0.45% 500 ML IV SCH (11:30)
[2017-10-10] MEDS: traMADol HCl 50 MG TAB PO PRN (11:40)
--- NOTE | 2017-10-10 13:58 | CON ---
DATE OF CONSULTATION: 10/10/2017 PRIMARY CARE PHYSICIAN: Esther Huertas M.D. CONSULTING PHYSICIAN: Dariel Abdullahi M.D. REASON FOR CONSULTATION: Left patellar fracture. BRIEF HISTORY: This is an 81-year-old male who presented to the Emergency Department complaining of left leg pain and swelling the day prior and ultrasound at that time showed a DVT of the left leg. He also had blood cultures, which came back positive for gram positive cocci 2/2 and then patient went home and they stated that he fell at home after dose of morphine given in the hospital. He had increased pain to his knee and increasing swelling to the knee after the fall. We have been consulted for a patellar fracture visualized on x-ray in the Emergency Department. At bedside now, the family reported that he was seen by Dr. Abdullahi earlier this week on Wednesday. He was complaining of thigh and hip pain at that time. X-rays revealed an incidental finding of an old superior patellar fracture. The patient states that he did fall as a child. This was not acute. At bedside, the patient reporting lateral-sided knee pain. He does report some swelling. No patellar pain reported at this time. PAST MEDICAL HISTORY: Significant for GERD, dyslipidemia, hypertension, and osteoarthritis. PAST SURGICAL HISTORY: Orthopedic surgical repair of left foot and ankle, coronary artery bypass x5 and prostate mass removal in 2017. SOCIAL HISTORY: The patient stopped smoking 20 years ago. Denies illicit drug use. Continues to drink socially. PHYSICAL EXAMINATION: VITAL SIGNS: Temperature 97.5, pulse 91, respiratory rate 18, blood pressure 91 /50. GENERAL: Patient is lying supine in bed. Family at bedside. No acute distress. Awake, alert, and oriented x3. HEENT: Normocephalic, atraumatic. NECK: Supple. EXTREMITIES: The left lower extremity was examined. The patient does have a 2 + knee effusion. He is nontender over the patella. He does have some lateral joint line tenderness. Range of motion is painful, but patient is able to flex approximately 30-40 degrees. He is unable to hold a straight leg raise at this time secondary to pain. No tendon deficit is palpable. Distal neurovascular status intact. Active range of motion in the ankle and toes. Capillary refill is 2 seconds. There is some erythema noted to the popliteal region of the knee. IMAGING DATA: Shows a knee x-ray performed in the ER which shows a comminuted transverse type fracture of the upper portion of the patella without abnormal displacement. Old x-rays reviewed from our clinic earlier this week dated 10/07 show the same comminuted transverse type fracture to the upper portion of the patella. There is no change in these films. ASSESSMENT AND PLAN: Left patella, old fracture, unchanged from prior films. Left knee effusion likely secondary to fall and contusion. Patient may use ice packs and weightbear as tolerated. He may increase activity as tolerated. He will follow up as an outpatient basis with Dr. Abdullahi for further evaluation. For further questions, please contact Orthopedic team. THALIAD
[2017-10-10 15:50] LABS: Vancomycin, Random 32.5 ug/mL (See Comment)
--- NOTE | 2017-10-10 16:13 | CON ---
DATE OF CONSULTATION: 10/10/2017 Vamshi Nieto is an 81-year-old gentleman, who was transferred here from the ER at [facility] after he presented with the left leg swelling, confusion, and fall. Apparently, he had positive blood cultures, unclear what they are, the leg was swollen. Ultrasound w as done, which showed apparently evidence of DVT, which I am told. He denies any difficulty breathing. According to the daughter, the patient has been angry for a lorena od of time. He has had ankle surgery done on his left leg about [address] Abdullahi. He saw Dr. Abdullahi recently for knee and ankle pain. At that time, there was some concern about his slight l eg swelling. Patient is a former smoker, quit smoking many years ago. No history of pneumonia, TB, or asthma. 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 PAST MEDICAL HISTORY: Hypertension, coronary artery disease, arthritis, hyperlipidemia. PREVIOUS SURGERIES: Left ankle surgery, bypass surgery, prostate mass removed several months ago, be nign, but has had problem with urinary problems. SOCIAL HISTORY: Alcohol occasionally. Tobacco: Former smoker, quit 20 years ago. LIST OF MEDICATIONS: Ascorbic acid, B12, iron tablets, Ismo 30, metoprolol 25, Protonix, Crestor 40, tamsulosin 0.4, tramadol p.r.n., clindamycin 3 times a day, ibuprofen, Xarelto 15 two times a day. ALLERGIES: PENICILLIN, MORPHINE, RANEXA. REVIEW OF SYSTEMS: Ten-point negative. PHYSICAL EXAMINATION: VITAL SIGNS: Sats are 97 on room air, blood pressure 130/64, temperature 97, pulse rate of 18. CHEST: Reveals no crackles or wheezing. CARDIAC: Normal S1 and S2. No gallops. ABDOMEN: Soft. EXTREMITIES: His left leg is from the thigh down, all the way to his ankle, is swollen, somewhat tig ht. There is some discoloration in the left leg, which the and the family says has been there f or a period of time. His right leg is normal and soft. NEUROLOGIC: He is awake, alert, responsive. IMPRESSION: 1. Left leg deep venous thrombosis. Ul[facility]ound done at the [facility] 2. History of coronary artery disease. 3. Previous coronary artery bypass grafting. 4. Hypertension. 5. Recent ankle surgery done. 6. Encephalopathy probably medication related. 7. Azotemia. His azotemia is new, could be dehydration. Restarted Xarelto at 15 mg twice a day, which should be m ore than adequate. Question is whether his Zestril is accounting for his azotemia. May consider adjusting his medications. We have started on vancomycin for presumed sepsis, awaiting cultures. We will have to adjust antibiotic depending on his cultures as watch his renal function. Otherwise, cardiovascular surgeon will see the patient, because his leg is somewhat tight. He may need a vascular evaluation. We will follow. This is a consultation note of 70 minutes, of which 50 minutes direct patient care.
--- NOTE | 2017-10-10 16:14 | CON ---
DATE OF CONSULTATION: 10/10/2017 HISTORY OF PRESENT ILLNESS: Mr. Nieto is an 81-year-old gentleman, who has been admitted with a l eft DVT. It is very difficult talking to the patient and his to get any sort of concrete history as to wh at has happened over the last week. Apparently, he has been seen in the Emergency Department at the [facility] a couple of times and the second time was transferred here when he was found to clark ve a DVT. He had a fall twice from an elevated bed and thinks that this may have precipitated some o f his leg symptoms on the left. He has no previous history of DVT. He has no previous peripheral va scular disease history. Prior to his falls, he was ambulatory without claudication or rest pain. He did have ORIF of his left ankle in 02/2017 and has recovered nicely from that. He has a history of coronary artery bypass grafting approximately [address] Marie. Sapheno us vein on the left was taken through skip incisions. Currently, he is resting comfortably in bed, a sleep without any complaint. PAST MEDICAL HISTORY: 1. Coronary artery disease, status post coronary artery bypass grafting. 2. Gastroesophageal reflux disease. 3. Hypertension. 4. Hyperlipidemia. 5. Osteoarthritis. PAST SURGICAL HISTORY: 1. ORIF of the left ankle. 2. Coronary artery bypass grafting. 3. Prostatectomy. SOCIAL HISTORY: He quit smoking around the time of his coronary artery bypass grafting. He does not use any other drugs. He does drinks alcohol socially. ALLERGIES: MORPHINE, NORCO, RANOLAZINE, and PENICILLIN. HOME MEDICATIONS: Noted. REVIEW OF SYSTEMS: Not performed due to a confusing history given by the patient and his family. PHYSICAL EXAMINATION: GENERAL: This is a well-developed, well-nourished man resting comfortably in bed. VITAL SIGNS: Height 5 feet 8 inches, weight 160 pounds, BSA is 1.87, temperature is 97.5, pulse is 8 0 and regular, blood pressure is 100/52. HEENT: Sclerae nonicteric. Pupils equal, round bilaterally. NECK: Supple, without adenopathy. There is no carotid bruit. CHEST: Clear bilaterally. HEART: Rhythm is regular, without murmur. ABDOMEN: Soft and nontender. EXTREMITIES: No cyanosis or clubbing. The left leg is edematous. There is erythema on the medial a spect of the left leg running from just below the knee to the mid-thigh. Lower leg has some brawny e rafy. VASCULAR: He has palpable femoral pulses bilaterally. On the right, his posterior tibial artery pul ses palpable. On the left, the posterior tibial and lateral tarsal pulses are dopplerable only. LABORATORY DATA: Of note, his creatinine is 3.2 -- the patient has a baseline of 1.0. BUN is 55. W neeta blood cell count is 11.1, hemoglobin is 11.4, and platelet count is 128,000. ASSESSMENT AND PLAN: 1. Deep venous thrombosis of the left leg. The patient has been placed on Xarelto. 2. Edema and erythema of the medial thigh -- the patient has been started on vancomycin, which shoul d be dosed by the pharmacy for his creatinine of 3.2. 3. The patient is obviously intravascularly dry with a BUN of 55 and a creatinine of 3.2. He is marco ng hydrated. I have stopped his ibuprofen until his creatinine returned to normal. 4. From a peripheral vascular standpoint, he obviously has some disease in his left leg. He has bee n asymptomatic at home. If this is deemed to be worthy of further study, a CT angiogram would be luis eficial once his creatinine returns to normal.
--- NOTE | 2017-10-10 16:50 | CON ---
DATE OF CONSULTATION: 10/10/2017 REASON FOR CONSULTATION: Bacteremia, left lower extremity inflammatory process. HISTORY OF PRESENT ILLNESS: An 81-year-old patient who has a history of hypertension, osteoarthritis, fracture of the left distal femur and left ankle about 8 months ago, status post open reduction internal fixation by Dr. Abdullahi then in his usual state until about a week before when he developed pain in the left ankle. He went to see Dr. Abdullahi. He ordered some tests. Subsequently, before he was able to do those tests, he developed progressively worsening pain in the remainder aspect of his left lower extremity. He went to the [facility] and had an evaluation. Labs were submitted and he was then released. Because of further worsening, he ended up in the emergency room at [facility] again for reevaluation. Here, it stated in the admit H&P that he had an ultrasound that showed deep vein thrombosis, left leg. I do not see copies of that report. By that time, his blood culture had turned positive for MRSA at [facility] laboratory where the samples from the [facility] were sent. Patient had developed further swelling, pain and inflammatory changes in the left lower extremity and was finally admitted. Initial BP 103/50, temperature 97.6 with severe pain in the left lower extremity , O2 sat 96%, pulse 87, respirations 28. Pertinent findings included left swollen thigh and erythema in the left ankle and thigh edema. Knee x-ray with the previously noted left-sided comminuted transverse type fracture without displacement. CBC: White cell count 14,000 with a left shift, platelets 123, 000 and creatinine 2.67. Lactic acid 3.1. Currently, Mr. Nieto has some distress from pain in the left lower extremity. REVIEW OF SYSTEMS: Denies any headaches, no visual symptoms, sore throat, odynophagia, dysphagia, no cough or sputum production or chest pain, no abdominal pain. He is having some trouble voiding, apparently has a history of BPH. No other joint symptoms. PAST MEDICAL HISTORY: Peripheral vascular disease with prior coronary artery bypass graft surgery in 1997 at the [facility], history of hematuria which led to hospital admission, it was felt to be probably from cystitis. He underwent fulguration of the prostate gland and cystoscopy with washout. PSYCHIATRIC HISTORY: Negative. FAMILY HISTORY: Noncontributory. SOCIAL HISTORY: Lives in town. Quit smoking 20 years prior. Drinks occasionally. . CURRENT MEDICATIONS: Tylenol, Catapres, Avodart, Prozac, Toprol, Protonix, Xarelto, Crestor, Flomax, Desyrel, vancomycin. ALLERGIES: PENICILLIN with angioedema and RANOLAZINE nausea. PHYSICAL EXAMINATION: VITAL SIGNS: T-max 98, blood pressure 98/52, pulse 88, respirations 18-20, O2 sat 100%. SKIN: Shows the area of nonpalpable purpura in the posterior aspect of the distal left thigh in a regular band-like fashion. There is erythema surrounding the medial posterior aspect of the thigh wrapping around the lateral aspect. The erythema extends to the proximal aspect of the left leg. Peripheral IV access. Lawrence catheter inserted. No lymphadenopathy. HEENT: Ocular movements are conjugate. Oral cavity with numerous missing teeth. Remainder ones with quite a bit of decay and gum disease. NECK: Supple. LUNGS: With symmetric clear breath sounds. HEART: S1, S2, regular rate. No S3, S4. ABDOMEN: Soft, not distended or tender. No evidence of bladder distention. : No genital abnormalities noted. EXTREMITIES: No joint inflammatory activity except for the left knee. It is not clear that the knee is inflamed or if it just the soft tissues around it. Pulses are diminished in dorsalis pedis. Could not feel popliteals on the left side. He is not able to move left lower extremity because of severe pain. NEUROLOGIC: His cognitive function appears to be intact. He moves all other extremities well. LABORATORY DATA: White cell count 11.1, hemoglobin 11, platelets 128,000, 74% neutrophils, 20% bands. Sodium 127, creatinine 3.2. Liver profile normal. IMAGING STUDIES: We have a chest x-ray which showed COPD, nephrosclerosis and a knee x-ray with comminuted mostly transverse type fracture through the upper portion of the patella. No displacement. Prominent calcifications. ASSESSMENT: Peripheral vascular disease and coronary artery disease with recent previous patellar fracture, left side associated with left ankle fracture. The patient had closed reduction with open cannulated screw fixation of medial malleolus in 12/2016. Now, he presents with inflammatory process with methicillin-resistant Staphylococcus aureus bacteremia with inflammatory changes extending from the proximal left leg all the way to the proximal left thigh involving the medial, lateral, and posterior aspect of the thigh with evidence of areas of skin necrosis. The main concern is with necrotizing fasciitis with Staph aureus. Joint involvement is not completely ruled out, particularly the left knee. DISCUSSION: There is mention of deep vein thrombosis. It does not appear that the deep vein thrombosis diagnosis has been confirmed. There is no report of any ultrasound to show that. We will order a duplex ultrasound and MRI of the left leg without contrast. I am concerned with a necrotizing process here. Continue vancomycin. Target trough between 15 and 20 mcg per mL. MTDD
[2017-10-10] MEDS: Tamsulosin HCl 0.4 MG CAP PO SCH (20:18)
[2017-10-10] MEDS: cloNIDine 0.1 MG TAB PO SCH (20:23)
[2017-10-10] MEDS ORDERED: Rosuvastatin 20 MG TAB PO SCH (21:00)
--- NOTE | 2017-10-10 21:31 | MRI ---
LEFT LOWER EXTREMITY MRI WITHOUT IV CONTRAST: History: 81-year-old male with history of inflammatory process in the left lower extremity, possible necrotizi ng fascitis. Technique: Multiplanar, multisequence MRI examination of the left buttock, hip, and thigh region from the upper mid pelvis down to the level of the knee. FINDINGS: There is very extensive subcutaneous edema and fat stranding of the lateral soft tissues overlying th e pelvis and hip and extending down into the thigh where there is diffuse subcutaneous edema and fat stranding. There is considerable amount of fluid along the superficial fascia of almost all the muscl es groups in the thigh as well as the gluteal muscle groups and adductor muscle groups. There is also fairly extensive heterogeneous edematous changes within the intramuscular regions including a small portion of the gluteus roberto muscle, more extensive involvement of the abductor muscles and also o f the thigh quadriceps and thigh hamstring muscles, some of which are more extensively involves than others. There is also deep intermuscular fascial fluid and edematous changes consistent with extensiv e deep fascitis. I cannot demonstrate any evidence of obvious gaseous necrosis or significant destruc tive changes within the muscle groups, although a CT scan would probably be more sensitive in identif kacey small amounts of intra or intermuscular gas. Signal within the femur is normal. No evidence for osteomyelitis. No evidence of identifiable drainable abscess. IMPRESSION: Very extensive myositis involving large components of portions of the hamstring musculature, quadrice ps musculature, adductor musculature and a small portion of the gluteus roberto muscle. Extensive isaiah p fascitis with considerable intermuscular edematous changes throughout the thigh and hip region. Ext ensive superficial fascitis. Extensive superficial cellulitis. No evidence for a definitive intramusc ular abscess or focal intramuscular necrosis or intramuscular gas although a CT scan would be more se nsitive in identifying tiny punctate foci of intramuscular gas which would be definitive for necrotiz ing fascitis. No evidence of drainable abscess. No evidence of osteomyelitis. POS: RRE
--- NOTE | 2017-10-10 22:23 | ULT ---
LEFT LOWER EXTREMITY VENOUS DOPPLER ULTRASOUND: Date: 10-10-17 Comparison: None. History: Left lower extremity pain and swelling. Redness and edema. Assess for DVT. Technique: Multiplanar grayscale sonographic imaging of the venous structures of the left lower extre mity obtained with color flow and spectral analysis. FINDINGS: The left common femoral vein, femoral vein, popliteal vein, greater saphenous vein, profunda femoral vein, posterior tibial vein, and anterior tibial vein are patent. There is normal blood flow, augment ation and compression within the deep venous system of the left lower extremity with no evidence for DVT. IMPRESSION: No evidence for deep venous thrombosis of the left lower extremity. POS: EFRAÍN
[2017-10-11] MEDS: Sodium Chloride 0.9% 1,000 ML IV SCH ×3 (01:21→16:25)
[2017-10-11 04:51] LABS: Anion Gap 15 mmol/L (10-20); BUN (Urea Nitrogen) 69 mg/dL (8.4-25.7); Calc. Creatinine Clearance 13 mL/min (70-130); Calcium 6.8 mg/dL (7.8-10.44); Carbon Dioxide 15 mmol/L (23-31); Chloride 96 mmol/L (98-107); Estimated GFR-MDRD 13; Glucose 84 mg/dL (83-110); Potassium 4.2 mmol/L (3.5-5.1); Sodium 122 mmol/L (136-145)
[2017-10-11 05:20] LABS: Band 24 % (5-11); Eosinophils 1 % (0-10); Hemoglobin 11.4 g/dL (14.0-18.0); MDiff Complete? YES; Mean Corpuscular HGB CONC 33.3 g/dL (32.0-36.0); Mean Corpuscular Hemoglobin 32.7 pg (27.0-31.0); Mean Corpuscular Volume 98.3 fl (80.0-94.0); Mean Platelet Volume 8.9 fL (7.4-10.4); Monocytes 1 % (0-10); Neutrophil 74 % (42-75); Platelet Count 145 thou/uL (130-400); RBC Distribution Width 12.9 % (11.5-14.5); Red Blood Cell (RBC) Count 3.48 mill/uL (4.70-6.10); White Blood Cell (WBC) Count 13.6 thou/uL (4.8-10.8)
[2017-10-11 08:44] LABS: Vancomycin, Trough 23.2 ug/mL
--- NOTE | 2017-10-11 08:48 | ULT ---
ULTRASOUND RENAL BILATERAL STANDARD: Date: 10/11/17 HISTORY: Medical renal disease. COMPARISON: Renal stone protocol CT dated 07/12/17. FINDINGS: Right kidney measures 11.5 x 5.8 x 5.7 cm. Left kidney measures 11.2 x 6.4 x 5.9 cm. No hydronephrosi s. There is a right-sided renal cyst, superior pole, measuring up to 4.4 cm. Gallbladder is distended with gallbladder sludge. Urinary bladder wall is thickened, although is carmen apsed. IMPRESSION: 1. No evidence of obstructive uropathy. 2. Distended gallbladder with sludge. 3. Right superior renal pole cyst. 4. Thickened urinary bladder wall, although it is collapsed. POS: TPC
--- NOTE | 2017-10-11 09:06 | PRG ---
DATE OF SERVICE: 10/11/2017 This morning he is complaining of pain in the leg. The leg is still swollen and warm. PHYSICAL EXAMINATION: VITAL SIGNS: Blood pressure 106/54, sats 97 on room air, respiration rate 18, temperature 97. CHEST: Chest reveals decreased breath sounds, no wheezing. CARDIAC: Normal S1, S2. No gallops. ABDOMEN: Abdomen is soft. LABORATORY DATA: White count 13,000, H&H 9 and 34, platelet count normal. Sodium was 122, BUN and c reatinine are elevated. IMPRESSION: 1. Increasing renal failure. 2. Hypernatremia. 3. Deep venous thrombosis. 4. Presumed sepsis. Blood cultures apparently growing from the [facility]. He is being followed by Infectious Disease and started on vancomycin. He is on Xarelto for his DVT. I am concerned about worsening renal function. Will give him some IV fluid hydration. I will follow.
[2017-10-11] MEDS: Dutasteride 0.5 MG CAP PO SCH (10:08)
[2017-10-11] MEDS: traMADol HCl 50 MG TAB PO PRN (10:08)
[2017-10-11] MEDS: cloNIDine 0.1 MG TAB PO SCH ×2 (10:10→20:33)
[2017-10-11] MEDS: Rivaroxaban 15 MG TAB PO SCH (10:10)
[2017-10-11] MEDS: FLUoxetine HCl 10 MG CAP PO SCH (10:10)
[2017-10-11] MEDS: Vancomycin HCl 750 MG in Sodium Chloride 0.9% 250 ML 250 ML IVPB SCH (10:10)
--- NOTE | 2017-10-11 13:42 | CON ---
DATE OF CONSULTATION: 10/11/2017 CONSULTING PHYSICIAN: Dr. Bowen. REASON FOR CONSULTATION: Acute kidney injury. REASON FOR ADMISSION: Left leg pain and swelling. HISTORY OF PRESENT ILLNESS: An 81-year-old male with history of GERD, hyperlipidemia, and hypertensi on, who came to the hospital with leg pain and initially had a creatinine of 2.67. His baseline crea tinine is around 1-1.3. Last creatinine was 1.63 on 08/24/2017. Nephrology was consulted for elevat ed creatinine, which is 4.4 today with a low urine output and also distention. family members. The patient is very tired and lethargic. No nausea or vomiting reported to me. No chest pain or p alpitation. PAST MEDICAL HISTORY: Positive for GERD, hyperlipidemia, hypertension, osteoarthritis. PAST SURGICAL HISTORY: Left foot surgery, coronary artery bypass. HOME MEDICATIONS: Ascorbic acid, vitamin D3, vitamin B12, iron sulfate, isosorbide mononitrate, meto prolol, Protonix, Crestor, tramadol, Fioricet, Eliquis, and Xarelto. ALLERGIES: MORPHINE, RANEXA. FAMILY HISTORY: No history of kidney disease. SOCIAL HISTORY: No smoking, alcohol, or drug abuse. REVIEW OF SYSTEMS: The following complete review of systems was negative, unless otherwise mentioned in the HPI or below: Constitutional: Weight loss or gain, ability to conduct usual activities. Skin: Rash, itching. Eyes: Double vision, pain. ENT/Mouth: Nose bleeding, neck stiffness, pain, tenderness. Cardiovascular: Palpitations, dyspnea on exertion, orthopnea. Respiratory: Shortness of breath, wheezing, cough, hemoptysis, fever or night sweats. Gastrointestinal: Poor appetite, abdominal pain, heartburn, nausea, vomiting, constipation, or diarrhea. Genitourinary: Urgency, frequency, dysuria, nocturia. Musculoskeletal: Pain, swelling. Neurologic/Psychiatric: Anxiety, depression. Allergy/Immunologic: Skin rash, bleeding tendency. PHYSICAL EXAMINATION: GENERAL: This is an elderly male, in no apparent distress. VITAL SIGNS: Temperature 97.2, pulse 90, respiratory 26, blood pressure 123/57. HEENT: Atraumatic, normocephalic. Oral mucosa is moist. NECK: Supple. CARDIOVASCULAR: S1, S2 heard. Rate and rhythm regular. RESPIRATORY: Clear. GASTROINTESTINAL: Abdomen is soft. MUSCULOSKELETAL: 1+ edema. DERMATOLOGIC: No skin rash. NEUROLOGIC: Alert and awake. PSYCHIATRIC: Normal. LABORATORY: Sodium is 122, BUN 69, creatinine is 4.4. ASSESSMENT AND PLAN: 1. Acute kidney injury most likely from bacteremia. Current cultures are pending. Continue support sarah care and renally dose all the medications. Vancomycin level was slightly elevated at 32.5 yester day, but better today. Renally dose all medications. Keep vancomycin level less than 30. I agree w ith hydration as tolerated. Recommend NS at 100 mL per hour. 2. Renal ultrasound was unremarkable without any obstruction. 3. Medication list reviewed. Monitor vancomycin level and dose per the level. 4. History of hypertension. Blood pressure is stable. 5. Anemia, mild. 6. Edema. 7. Hyponatremia. Agree with intravenous fluids for now. 8. Metabolic acidosis. Lactic acidosis present with lactic level is better now, most likely from re nal disease. 9. Hypoalbuminemia with moderate protein energy malnutrition. 10. Avoid nephrotoxins. Continue hydration and will monitor closely. Continue to monitor respirato ry and cardiac status. We will follow. Thank you for the consult.
--- NOTE | 2017-10-11 13:43 | PDOC.PN ---
- Subjective Encounter Start Date: 10/11/17 Encounter Start Time: 13:49 Subjective: Feels fatigued but otherwise well -: No other complaints. -: No acute events overnight. - Objective Resuscitation Status: Resuscitation Status FULL:Full Resuscitation MAR Reviewed: Yes Vital Signs & Weight: Vital Signs (12 hours) Temp Pulse Resp BP BP Pulse Ox 10/11/17 11:00 97.2 F L 90 26 H 123/57 L 92 L 10/11/17 10:10 98/47 L 10/11/17 08:00 97.2 F L 90 26 H 96 10/11/17 07:28 97.6 F 81 22 H 107/54 L 97 10/11/17 07:00 97 10/11/17 04:00 98.3 F 79 20 101/47 L 97 Weight Weight 169 lb 14.4 oz I&O: 10/10/17 10/11/17 10/12/17 06:59 06:59 06:59 Intake Total 1200 5419 Output Total 300 490 Balance 900 4929 Result Diagrams: 10/11/17 03:56 10/11/17 03:56 Phys Exam - Physical Examination Constitutional: NAD HEENT: PERRLA, moist MMs, sclera anicteric Neck: no JVD, supple, full ROM Respiratory: no wheezing, no rales, no rhonchi, clear to auscultation bilateral Cardiovascular: RRR, no significant murmur, no rub Gastrointestinal: soft, non-tender, no distention, positive bowel sounds Musculoskeletal: no edema, pulses present Neurological: non-focal, moves all 4 limbs Psychiatric: normal affect, A&O x 3 Skin: no rash, normal turgor Dx/Plan (1) Septic shock due to Gram positive bacteria Code(s): A41.89 - OTHER SPECIFIED SEPSIS; R65.21 - SEVERE SEPSIS WITH SEPTIC SHOCK Status: Acute Comment: Improving. Repeat cultures negative so far. Will continue fluids, Vancomycin and await ID recs. (2) Fracture of patella, left, closed Code(s): S82.002A - UNSP FRACTURE OF LEFT PATELLA, INIT FOR CLOS FX Status: Acute Qualifiers: Encounter type: subsequent encounter Fracture morphology: comminuted Fracture alignment: nondisplaced Fracture healing: with routine healing Qualified Code(s): S82.045D - Nondisplaced comminuted fracture of left patella, subsequent encounter for closed fracture with routine healing Comment: Ensure adequate pain control. Follow ortho recs. (3) Deep vein thrombosis (DVT) of left lower extremity Code(s): I82.402 - ACUTE EMBOLISM AND THOMBOS UNSP DEEP VEINS OF L LOW EXTREM Status: Acute Qualifiers: Affected thrombotic vein of extremity: femoral Chronicity: acute Qualified Code(s): I82.412 - Acute embolism and thrombosis of left femoral vein Comment: Xarelto discontinued 2/2 worsening renal function. Started on renally dosed Lovenox. (4) CAD (coronary artery disease) Code(s): I25.10 - ATHSCL HEART DISEASE OF [place] CORONARY ARTERY W/O ANG PCTRS Status: Chronic Qualifiers: Coronary Disease-Associated Artery/Lesion type: unspecified vessel or lesion type [place] vs. transplanted heart: [place] heart Associated angina: without angina Qualified Code(s): I25.10 - Atherosclerotic heart disease of [place] coronary artery without angina pectoris Comment: Stable. Chest pain free. Will gradually reintroduce his home meds. (5) HLD (hyperlipidemia) Code(s): E78.5 - HYPERLIPIDEMIA, UNSPECIFIED Status: Chronic Qualifiers: Hyperlipidemia type: unspecified Qualified Code(s): E78.5 - Hyperlipidemia , unspecified Comment: On renally dosed Crestor. (6) HTN (hypertension) Code(s): I10 - ESSENTIAL (PRIMARY) HYPERTENSION Status: Chronic Qualifiers: Hypertension type: essential hypertension Qualified Code(s): I10 - Essential (primary) hypertension Comment: Will gradually reintroduce home regimen. (7) ARF (acute renal failure) Status: Acute Qualifiers: Acute renal failure type: unspecified Qualified Code(s): N17.9 - Acute kidney failure, unspecified Comment: Worsening. Renal US with no obstructive uropathy. Likely ATN from septic shock. Will hydrate and f/u renal consult. (8) Myositis Code(s): M60.9 - MYOSITIS, UNSPECIFIED Status: Acute Qualifiers: Myositis type: unspecified type Myositis location: thigh Laterality: left Qualified Code(s): M60.852 - Other myositis, left thigh Comment: Extensive myositis and fascitis seen on MRI. Will continue Vancvomycin and f/u with ID for further recs. - Plan cont current plan of care, plan discussed w/ family, continue antibiotics, out of bed/ambulate, DVT proph w/lovenox * . Review of Systems - Medications/Allergies Allergies/Adverse Reactions: Allergies Allergy/AdvReac Type Severity Reaction Status Date / Time Penicillins Allergy Severe "lips Verified 01/17/17 07:01 swelled" morphine Allergy Intermediate Verified 10/09/17 23:01 ranolazine [From Ranexa] Allergy Nausea Verified 01/17/17 07:01 Medications: Current Medications Acetaminophen (Tylenol) 650 mg PO Q4H PRN PRN Reason: Headache/Fever or Pain Last Admin: 10/09/17 21:17 Dose: 650 mg Clonidine (Catapres) 0.1 mg PO BID [facility] Last Admin: 10/11/17 10:10 Dose: Not Given Dutasteride (Avodart) 0.5 mg PO DAILY [facility] Last Admin: 10/11/17 10:08 Dose: 0.5 mg Fluoxetine HCl (Prozac) 10 mg PO DAILY [facility] Last Admin: 10/11/17 10:10 Dose: 10 mg Sodium Chloride (Normal Saline 0.9%) 1,000 mls @ 150 mls/hr IV .Q6H40M [facility] Last Admin: 10/11/17 10:11 Dose: 1,000 mls Vancomycin HCl 750 mg/ Sodium (Chloride) 250 mls @ 250 mls/hr IVPB Q24HR@0900 [facility] Last Admin: 10/11/17 10:10 Dose: 250 mls Metoprolol Succinate (Toprol Xl) 100 mg PO QPM [facility] Last Admin: 10/10/17 20:23 Dose: Not Given Miscellaneous Medication (Pharmacy To Dose) 1 each IVPB .VANCOMCYIN [facility] Pantoprazole Sodium (Protonix) 40 mg PO DAILY [facility] Last Admin: 10/11/17 10:08 Dose: 40 mg Rivaroxaban (Xarelto) 15 mg PO BID [facility] Last Admin: 10/11/17 10:10 Dose: 15 mg Rosuvastatin Calcium (Crestor) 10 mg PO HS [facility] Tamsulosin HCl (Flomax) 0.4 mg PO HS [facility] Last Admin: 10/10/17 20:18 Dose: 0.4 mg Tramadol HCl (Ultram) 50 mg PO Q8H PRN PRN Reason: Pain Last Admin: 10/11/17 10:08 Dose: 50 mg Trazodone HCl (Desyrel) 50 mg PO HS PRN PRN Reason: Insomnia
[2017-10-11] MEDS ORDERED: Calcium Carbonate 500 MG ChewTAB PO PRN (14:32)
[2017-10-11] MEDS: Calcium Carbonate 500 MG ChewTAB PO PRN (16:23)
--- NOTE | 2017-10-11 18:36 | PRG ---
DATE OF SERVICE: 10/11/2017 SUBJECTIVE: The patient still in the IMCU. He is awake, a little bit tachypneic. No headaches, no visual symptoms. No sore throat. No abdominal pain, marked pain in the left thigh, but not as much as yesterday. OBJECTIVE: VITAL SIGNS: T-max 98.3, blood pressure 118/63, pulse 83, respirations 24, O2 sat 97%. HEENT: Ocular movements conjugate. Pupils are equal. NECK: Supple. LUNGS: Symmetric breath sounds. CARDIOVASCULAR: S1, S2, regular rate. ABDOMEN: Soft and not distended. Left thigh less tender and less swollen as well as less erythemato us than yesterday. Still quite a bit of tenderness all the way from the groin line to the knee. LABORATORY DATA: White cell count is 13.6, hemoglobin 11, platelets 145 and sodium 122, creatinine 4 .41. Repeat blood cultures thus far no growth at 48 hours. MRI showed extensive areas of myositis i n the left thigh associated with fasciitis as well. ASSESSMENT AND DISCUSSION: Peripheral vascular disease, coronary artery disease, patellar fracture, left side, associated left ankle fracture, open reduction and internal fixation and now with severe m yositis in the left eye with fasciitis. The possibility of necrotizing process is considered, lot of times those can only be identified upon inspection of the tissues during the I and D or surgical marleen ridement of the area. He may need to have a surgical debridement. Staphylococcus aureus is notoriou s for causing necrosis and purulence. Due to the extensive nature of this patient's process, it is h maeve to believe that he would be able to be treated conservatively with only antimicrobial therapy, bu t will continue following up.
[2017-10-11] MEDS: Rosuvastatin 10 MG TAB PO SCH (20:28)
[2017-10-11] MEDS: Apixaban 5 MG TAB PO SCH (20:28)
[2017-10-11] MEDS: Tamsulosin HCl 0.4 MG CAP PO SCH (20:28)
[2017-10-12] MEDS: Sodium Chloride 0.9% 1,000 ML IV SCH ×2 (01:04→05:30)
[2017-10-12] MEDS: traMADol HCl 50 MG TAB PO PRN (02:38)
[2017-10-12] MEDS ORDERED: Simethicone Chewable 80 MG TAB PO PRN (04:28)
[2017-10-12 04:57] LABS: Anion Gap 18 mmol/L (10-20); BUN (Urea Nitrogen) 75 mg/dL (8.4-25.7); Calc. Creatinine Clearance 12 mL/min (70-130); Calcium 6.8 mg/dL (7.8-10.44); Carbon Dioxide 12 mmol/L (23-31); Chloride 95 mmol/L (98-107); Estimated GFR-MDRD 11; Glucose 77 mg/dL (83-110); Potassium 4.5 mmol/L (3.5-5.1); Sodium 120 mmol/L (136-145)
[2017-10-12 05:10] LABS: Band 8 % (5-11); Hemoglobin 11.8 g/dL (14.0-18.0); Lymphocytes 2 % (21-51); MDiff Complete? YES; Mean Corpuscular HGB CONC 34.3 g/dL (32.0-36.0); Mean Corpuscular Hemoglobin 33.5 pg (27.0-31.0); Mean Corpuscular Volume 97.6 fl (80.0-94.0); Mean Platelet Volume 8.3 fL (7.4-10.4); Monocytes 3 % (0-10); Neutrophil 87 % (42-75); Platelet Count 168 thou/uL (130-400); RBC Distribution Width 12.9 % (11.5-14.5); Red Blood Cell (RBC) Count 3.53 mill/uL (4.70-6.10)
[2017-10-12] MEDS ORDERED: Apixaban 5 MG TAB PO SCH (09:00)
[2017-10-12] MEDS: cloNIDine 0.1 MG TAB PO SCH (09:40)
[2017-10-12] MEDS: FLUoxetine HCl 10 MG CAP PO SCH (09:40)
[2017-10-12] MEDS: Dutasteride 0.5 MG CAP PO SCH (09:41)
[2017-10-12] MEDS: Vancomycin HCl 750 MG in Sodium Chloride 0.9% 250 ML 250 ML IVPB SCH (09:41)
[2017-10-12] MEDS: Apixaban 5 MG TAB PO SCH (10:27)
[2017-10-12] MEDS: Calcium Carbonate 500 MG ChewTAB PO PRN (11:28)
--- NOTE | 2017-10-12 13:19 | CON ---
DATE OF CONSULTATION: 10/12/2017 INPATIENT CONSULTATION PRIMARY CARE PHYSICIAN: Dr. Angeles Delgadillo. REASON FOR CONSULT: Patient's family request. HISTORY OF PRESENT ILLNESS: Mr. Nieto is an 81-year-old male known to me as I initially met him 07/14/2017 with history of gross hematuria, clot retention. He underwent emergent cystoscopy, evacuation of clots, fulguration of prostatic bleed, channel TURP. He subsequently did well with clearing of his urine, with good urinary caliber. As a channel TURP was performed, the patient was advised to continue his BPH meds for now. As he was not having any obstructive urinary symptoms, he desired to continue medical therapy in adjunct to his channel TURP for fulguration of bleed. He was seen in my office last month as he had some penile urethral discomfort, PVR was minimal at 0. However , physical exam demonstrated fossa navicularis stricture which was dilated with Justin sounds and presented for a voiding trial 09/15/2017 with no significant issues. Chart review performed demonstrating that he was seen by Orthopedic Surgery with left lower extremity edema and admitted for cellulitis, DVT ruled out.. He has been seen by General Surgery, Nephrology, Infectious Disease as he has been diagnosed with MRSA of his left lower extremity with significant edema with leukocytosis. Due to renal failure, patient is to have a hemodialysis catheter today to start his hemodialysis. His urine output has been scant on this admission, workup with renal ultrasound demonstrated no evidence of hydronephrosis, no significant postvoid residual. PAST MEDICAL HISTORY: Coronary artery disease, peripheral vascular disease, hypertension, benign prostatic hypertrophy, history of gross hematuria with clot retention, resolved. PAST SURGICAL HISTORY: ORIF of the left ankle in 12/2016, coronary artery bypass graft, cystoscopy, evacuation of clots, and fulguration of prostatic bleed, channel TURP, meatal calibration, dilation in 07/12/2017, meatal fossa navicularis meatal stricture dilatation with Justin sounds, 09/08/2017. ALLERGIES: PENICILLIN. CURRENT MEDICATIONS: Eliquis, Tylenol, Tums, clonidine, Avodart, Prozac, metoprolol, Protonix, Crestor, Flomax, tramadol, Desyrel, vancomycin. PHYSICAL EXAMINATION: VITAL SIGNS: Temperature 97.5, pulse 82, respirations 18, 95% on room air. Vital signs are stable. Strict I's and O's are not documented. Postvoid residual checked by primary service is only 25 mL. Urine output has been scant variable from 200-465 mL over 24 hours. GENERAL: Patient is alert, cooperative to physical exam, oriented x2. HEENT: Grossly unremarkable. LUNGS: Clear. ABDOMEN: Obese, protuberant, no suprapubic tenderness or distention. There is evidence of pitting edema. EXTREMITIES: Bilateral lower back extending to his left lower extremity due to cellulitis pitting edema of the left lower extremity. GENITOURINARY: Uncircumcised, retracts easily with ease. Penile/prepucial scrotal edema consistent with pitting edema/early anasarca. The meatus caliber is unremarkable. At bedside, I tried to pass a 16-Beng[place] Lawrence. There was some resistance; however, I was able to pass all the way into the bladder without significant issues. I did irrigate the Lawrence catheter at bedside confirming proper placement with clear concentrated urine return. Minimal urine returned as expected due to renal failure. RECTAL: Digital rectal exam, prostate approximately 40 grams with no discrete nodularity. PERTINENT LABORATORY DATA: White count 20,000, hemoglobin 11, platelet 168. Creatinine is 5.2. BUN 75. Sodium 120, baseline creatinine 1.0-1.6. White Blood culture negative. Urine culture negative; however, no urinalysis available. IMAGIN. Renal ultrasound on 10/11/2017. No evidence of hydronephrosis, distended gallbladder with sludge, right upper pole renal cyst measuring 4.4 cm, bladder thickened, although no significant urine. 2. Lower extremity MRI on 10/10/2017, extensive myositis of the hamstring/ quadriceps, adductor musculature, gluteus roberto. Extensive deep fasciitis of the hip and thigh region. 3. Vascular ultrasound on 10/10/2017, no evidence of DVT. IMPRESSION/PLAN: Mr. Nieto is an 81-year-old male with history of: 1. Coronary artery disease. 2. History of benign prostatic hypertrophy with clot retention status post cystoscopy, fulguration of bleed, channel transurethral resection of the prostate. 3. History of fossa navicularis stricture treated recently. The patient is currently admitted for MRSA cellulitis with renal failure, no evidence of obstructive uropathy. I did place a Lawrence catheter to gravity at bedside as there is mild recurrence of his fossa navicularis stricture for strict I's and O's. I do expect further decrease in urine output with dialysis. The patient and family informed regarding current medical issues and concerns. Continue indwelling Lawrence catheter for now, we'll consider removal in few days pending his progress. Family updated on clinical progress workup. MANOLO
--- NOTE | 2017-10-12 13:24 | PDOC.PN ---
- Subjective Encounter Start Date: 10/12/17 Encounter Start Time: 13:27 Subjective: No new complaints. -: Still oliguruc and renal indices continue to worsen - Objective Resuscitation Status: Resuscitation Status FULL:Full Resuscitation MAR Reviewed: Yes Vital Signs & Weight: Vital Signs (12 hours) Temp Pulse Resp BP Pulse Ox 10/12/17 11:53 97.5 F L 82 18 120/55 L 95 10/12/17 08:00 97.9 F 80 22 H 97 10/12/17 07:00 97.9 F 80 22 H 96/51 L 96 10/12/17 04:00 97.6 F 83 19 112/53 L 97 Weight Weight 175 lb 12.8 oz I&O: 10/11/17 10/12/17 10/13/17 06:59 06:59 06:59 Intake Total 5419 4530 120 Output Total 490 200 Balance 4929 4330 120 Result Diagrams: 10/12/17 04:25 10/12/17 04:25 Phys Exam - Physical Examination Constitutional: NAD HEENT: PERRLA, moist MMs, sclera anicteric Neck: supple, full ROM Respiratory: no wheezing, no rales, no rhonchi, clear to auscultation bilateral Cardiovascular: RRR, no significant murmur, no rub Gastrointestinal: soft, non-tender, no distention, positive bowel sounds Musculoskeletal: pulses present, edema present Neurological: non-focal, moves all 4 limbs Psychiatric: normal affect, A&O x 3 Skin: normal turgor Dx/Plan (1) ARF (acute renal failure) Status: Acute Qualifiers: Acute renal failure type: unspecified Qualified Code(s): N17.9 - Acute kidney failure, unspecified Comment: Worsening. Renal US with no obstructive uropathy. Patient oliguric. Likely ATN from septic shock. Failed fluid challenge and is edematous. Nephrology on board- will dialyze. Obtain urine studies. (2) Septic shock due to Gram positive bacteria Code(s): A41.89 - OTHER SPECIFIED SEPSIS; R65.21 - SEVERE SEPSIS WITH SEPTIC SHOCK Status: Resolved Comment: Improving. 2/2 MRSA cellulitis. Repeat cultures negative so far. Will continue fluids, Vancomycin and await ID recs. (3) Fracture of patella, left, closed Code(s): S82.002A - UNSP FRACTURE OF LEFT PATELLA, INIT FOR CLOS FX Status: Acute Qualifiers: Encounter type: subsequent encounter Fracture morphology: comminuted Fracture alignment: nondisplaced Fracture healing: with routine healing Qualified Code(s): S82.045D - Nondisplaced comminuted fracture of left patella, subsequent encounter for closed fracture with routine healing Comment: Ensure adequate pain control. Follow ortho recs. (4) Deep vein thrombosis (DVT) of left lower extremity Code(s): I82.402 - ACUTE EMBOLISM AND THOMBOS UNSP DEEP VEINS OF L LOW EXTREM Status: Acute Qualifiers: Affected thrombotic vein of extremity: femoral Chronicity: acute Qualified Code(s): I82.412 - Acute embolism and thrombosis of left femoral vein Comment: Xarelto discontinued 2/2 worsening renal function. Started on Eliquis. (5) CAD (coronary artery disease) Code(s): I25.10 - ATHSCL HEART DISEASE OF [place] CORONARY ARTERY W/O ANG PCTRS Status: Chronic Qualifiers: Coronary Disease-Associated Artery/Lesion type: unspecified vessel or lesion type [place] vs. transplanted heart: [place] heart Associated angina: without angina Qualified Code(s): I25.10 - Atherosclerotic heart disease of [place] coronary artery without angina pectoris Comment: Stable. Chest pain free. Will gradually reintroduce his home meds. (6) HLD (hyperlipidemia) Code(s): E78.5 - HYPERLIPIDEMIA, UNSPECIFIED Status: Chronic Qualifiers: Hyperlipidemia type: unspecified Qualified Code(s): E78.5 - Hyperlipidemia , unspecified Comment: On renally dosed Crestor. (7) HTN (hypertension) Code(s): I10 - ESSENTIAL (PRIMARY) HYPERTENSION Status: Chronic Qualifiers: Hypertension type: essential hypertension Qualified Code(s): I10 - Essential (primary) hypertension Comment: Will gradually reintroduce home regimen. (8) Myositis Code(s): M60.9 - MYOSITIS, UNSPECIFIED Status: Acute Qualifiers: Myositis type: unspecified type Myositis location: thigh Laterality: left Qualified Code(s): M60.852 - Other myositis, left thigh Comment: Extensive myositis and fascitis seen on MRI. Will continue Vancvomycin and f/u with ID for further recs. General surgery consult as well. - Plan cont current plan of care, anne catheter, continue antibiotics, PT/OT * . Review of Systems - Medications/Allergies Allergies/Adverse Reactions: Allergies Allergy/AdvReac Type Severity Reaction Status Date / Time Penicillins Allergy Severe "lips Verified 01/17/17 07:01 swelled" morphine Allergy Intermediate Verified 10/09/17 23:01 ranolazine [From Ranexa] Allergy Nausea Verified 01/17/17 07:01 Medications: Current Medications Acetaminophen (Tylenol) 650 mg PO Q4H PRN PRN Reason: Headache/Fever or Pain Last Admin: 10/09/17 21:17 Dose: 650 mg Apixaban (Eliquis) 2.5 mg PO BID [facility] Last Admin: 10/12/17 09:37 Dose: Not Given Calcium Carbonate (Tums) 500 mg PO TID PRN PRN Reason: Heartburn(MILD-MOD) Calcium Carbonate (Tums) 1,000 mg PO TID PRN PRN Reason: Heartburn (SEVERE) Last Admin: 10/12/17 11:28 Dose: 1,000 mg Clonidine (Catapres) 0.1 mg PO BID [facility] Last Admin: 10/12/17 09:40 Dose: Not Given Dutasteride (Avodart) 0.5 mg PO DAILY [facility] Last Admin: 10/12/17 09:41 Dose: 0.5 mg Fluoxetine HCl (Prozac) 10 mg PO DAILY [facility] Last Admin: 10/12/17 09:40 Dose: 10 mg Vancomycin HCl 750 mg/ Sodium (Chloride) 250 mls @ 250 mls/hr IVPB Q24HR@0900 [facility] Last Admin: 10/12/17 09:41 Dose: 250 mls Metoprolol Succinate (Toprol Xl) 100 mg PO QPM [facility] Last Admin: 10/11/17 20:33 Dose: Not Given Miscellaneous Medication (Pharmacy To Dose) 1 each IVPB .VANCOMCYIN [facility] Pantoprazole Sodium (Protonix) 40 mg PO BID [facility] Last Admin: 10/12/17 09:40 Dose: 40 mg Rosuvastatin Calcium (Crestor) 10 mg PO HS [facility] Last Admin: 10/11/17 20:28 Dose: 10 mg Simethicone (Mylicon Chewable) 80 mg PO Q12H PRN PRN Reason: GAS PAIN Last Admin: 10/12/17 04:39 Dose: 80 mg Tamsulosin HCl (Flomax) 0.4 mg PO HS [facility] Last Admin: 10/11/17 20:28 Dose: 0.4 mg Tramadol HCl (Ultram) 50 mg PO Q8H PRN PRN Reason: Pain Last Admin: 10/12/17 02:38 Dose: 50 mg Trazodone HCl (Desyrel) 50 mg PO HS PRN PRN Reason: Insomnia
[2017-10-12 13:48] VITALS: BMI 26.7
--- NOTE | 2017-10-12 14:06 | PRG ---
DATE OF SERVICE: 10/12/2017 SUBJECTIVE: This morning, he has multiple complaints. It is swollen. He is having some difficulty breathing. OBJECTIVE: VITAL SIGNS: Sats 96% on room air, respiration 22, temperature 97, blood pressure 90/51. His I's an d O's have been 4530 in and 29 out. CHEST: Decreased breath sounds, no wheezing. CARDIAC: Normal S1, S2, no gallops. ABDOMEN: Soft. No masses. LABORATORY DATA: White count 10,000, H and H 9 and 34, platelet count 168. Sodium 120, BUN and crea tinine are 75 and 5.2. GFR is 11. IMPRESSION: 1. Left leg deep venous thrombosis. 2. Myositis. 3. Renal failure. 4. Severe deconditioning. 5. Benign prostatic hypertrophy. 6. Sepsis. PLAN: His anticoagulation is being adjusted for his renal failure. Nephrology is going to try and dialyze him today. Continue follow in the MICU. Continue aggressive PT.
[2017-10-12] MEDS ORDERED: PROPOFOL 200 MG/20 ML VIAL ONE (15:01)
[2017-10-12] MEDS ORDERED: PHENYLEPHRINE-NS 100 MCG/ML 10 ML SYRINGE ONE (15:01)
[2017-10-12] MEDS ORDERED: Succinylcholine Chloride 20 MG/ML 10 ml SYRINGE FS ONE (15:01)
[2017-10-12] MEDS ORDERED: Lidocaine 1% PF 5 ML VIAL ONE (15:01)
[2017-10-12 15:24] VITALS: BP 120/54
[2017-10-12 15:24] LABS: Bilirubin Negative (Negative); Blood, Urine Large (Negative); Clarity Hazy (Clear); Glucose, Urine (Dipstick) Negative (Negative); Leukocyte Negative (Negative); Nitrite Negative (Negative); Protein, Urine (Dipstick) 30 mg/dL (Neg-Trace); Urobilinogen 0.2 mg/dL (0.2-1.0)
[2017-10-12 15:41] LABS: Bacteria/HPF None Seen HPF (None Seen); Crystals/HPF 2+ AMORPH URATES HPF (Negative); Hyaline Casts/LPF 0-3 HYALINE CAST LPF (0-3 Hyaline); Squamous Epithelial 0-3 HPF (0-3); WBC/HPF 0-3 HPF (0-3); Yeast-All Forms None Seen HPF (None Seen)
[2017-10-12 15:47] LABS: Potassium, Urine 11.4 mmol/L
[2017-10-12] MEDS ORDERED: Bupivacaine HCl 0.5%/Epinephrine 1:200,000/PF 30 ml Vial ONE (17:20)
[2017-10-12] MEDS ORDERED: Heparin 10,000 UNITS/1 ML VIAL ONE (17:20)
[2017-10-12 17:32] LABS: Anion Gap 18 mmol/L (10-20); BUN (Urea Nitrogen) 80 mg/dL (8.4-25.7); Calc. Creatinine Clearance 11 mL/min (70-130); Calcium 6.9 mg/dL (7.8-10.44); Carbon Dioxide 13 mmol/L (23-31); Chloride 93 mmol/L (98-107); Estimated GFR-MDRD 10; Glucose 61 mg/dL (83-110); Potassium 4.7 mmol/L (3.5-5.1)
[2017-10-12 17:35] LABS: Sodium 119 mmol/L (136-145)
[2017-10-12] MEDS ORDERED: Midazolam HCl 2 mg/2 ml Vial ONE (17:44)
[2017-10-12] MEDS ORDERED: Morphine 10 MG/ML VIAL ONE (17:44)
[2017-10-12] MEDS ORDERED: Sodium Chloride 0.9% 0 ML ONE (17:45)
[2017-10-12 18:39] LABS: HBSAB Concentration 0.79 mIU/mL; HBSAg Index 0.17 S/CO (0-0.99); Hep B Core Total Ab Non-Reactive (NonReactive); Hep B Core Total Index 0.07 S/CO (0-0.79); Hep B Surf AB Non-Reactive (NonReactive); Hep B Surf Ag Non-Reactive S/CO (NonReactive); Hep C IgG Ab Non-Reactive (NonReactive); Hep C Index 0.06 S/CO (0-0.79)
[2017-10-12] MEDS ORDERED: Albuterol Sulfate 2.5 mg/3 ml Neb NEB PRN (19:12)
[2017-10-12] MEDS ORDERED: Ventilator Sedation Protocol 1 EACH FS SCH (19:15)
[2017-10-12] MEDS ORDERED: Morphine 2 MG/ML SYRINGE SLOW IVP PRN (19:20)
[2017-10-12] MEDS ORDERED: fentaNYL Citrate/PF 2,000 MCG in Sodium Chloride 0.9% 60 ML IV SCH (19:20)
[2017-10-12] MEDS ORDERED: Propofol 1,000 MG/100 ML VIAL IV PRN (19:20)
[2017-10-12] MEDS ORDERED: Fentanyl BOLUS 250 ML IVPB PRN (19:20)
[2017-10-12] MEDS ORDERED: Lorazepam 2 MG/ML VIAL SLOW IVP PRN (19:20)
[2017-10-12] MEDS ORDERED: DISCONTINUE PREVIOUS NARCOTIC PAIN MEDICATIONS AND BENZODIAZEPINES FS SCH (19:20)
[2017-10-12] MEDS ORDERED: Morphine 4 MG/ML VIAL SLOW IVP PRN (19:22)
[2017-10-12] MEDS ORDERED: Acetaminophen 1,000 MG in Premix Bag 1 BAG IVPB PRN (19:24)
[2017-10-12] MEDS ORDERED: Sodium Chloride 0.9% 1,000 ML IV SCH ×3 (19:30→22:30)
--- NOTE | 2017-10-12 20:34 | PRG ---
DATE OF SERVICE: 10/12/2017 SERVICE: Pulmonary Medicine. HISTORY OF PRESENT ILLNESS: The patient went down for a fasciotomy for his necrotizing fasciitis. He came back to the ICU on mechanical ventilation, because he is going back down tomorrow for a washout. He cannot provide additional elements of the history, because he is currently under the influence of sedation from the recent operation. He does not look to be in any significant discomfort. Thera are no current events. PHYSICAL EXAMINATION: VITAL SIGNS: Afebrile, pulse 83, blood pressure 120/54, respirations 20, saturation 97% on room air. GENERAL: The patient is intubated and sedated. HEENT: Normocephalic, atraumatic. Sclerae are white, conjunctivae pink. Oral and nasal mucosa is moist without lesions. LUNGS: Decent air entry. There is no prolonged expiratory phase. Dependent crackles are minimal. No rhonchi or wheezing is appreciated. HEART: Normal rate, regular. ABDOMEN: Soft, nontender, nondistended. Bowel sounds are positive. MUSCULOSKELETAL: No cyanosis or clubbing. There is diffuse 1-2+ pitting throughout. Left lower extremity is wrapped with an Mauro bandage. GENITOURINARY: Lawrence catheter in place. NEUROLOGIC: Grossly nonfocal. LABORATORY DATA: WBC 20.0, hemoglobin 11.8, platelets 168,000. Sodium 119, bicarbonate 13, creatinine 5.72 and trending upward, BUN 80. Basic metabolic profile is otherwise unremarkable. Vancomycin trough is 23.2. Blood cultures x2 are unremarkable. IMAGING: Chest x-ray demonstrates endotracheal tube is in decent position, roughly 4-5 cm above the pb. There are multiple ric present throughout the chest. There is a left IJ catheter in good position. There is probably a left-sided pleural effusion. Cardiac silhouette is enlarged. There is an enteric catheter that courses well below the level of the diaphragm. ASSESSMENT: 1. Acute hypoxic respiratory failure. 2. Acute kidney injury on possible chronic kidney disease. 3. Necrotizing fasciitis. 4. Severe sepsis. PLAN: The patient is going to remain on mechanical ventilation. I have modified his ventilator settings to improve on patient comfort. Pulmonary Critical Care will continue to follow while he remains in this location. Dr. Dia will be notified the patient has been moved to the ICU. CRITICAL CARE TIME: 30 minutes. MANOLO
[2017-10-12] MEDS ORDERED: HOLD VANCOMYCIN FOR LEVEL >20 FS SCH (20:45)
[2017-10-12] MEDS ORDERED: Vancomycin HCl 750 MG in Sodium Chloride 0.9% 250 ML 250 ML IVPB SCH (20:45)
[2017-10-12] MEDS ORDERED: Vancomycin HCl 500 MG in Sodium Chloride 0.9% 100 ML IVPB SCH (20:45)
[2017-10-12] MEDS ORDERED: Vancomycin Sliding Scale 1 EACH FS ONE (20:45)
[2017-10-12] MEDS ORDERED: Vancomycin HCl 1 GM in Premix Bag 1 BAG IVPB SCH (20:45)
[2017-10-12] MEDS ORDERED: Vancomycin HCl 1.25 GM in Sodium Chloride 0.9% 250 ML 250 ML IVPB SCH (20:45)
[2017-10-12 20:48] LABS: CO2 Tension 33.2 mmHg (35.0-45.0); O2 Tension (PaO2) 69.4 mmHg (80.0-100.0); pH, Arterial 7.16 (7.35-7.45)
[2017-10-12 20:49] LABS: Actual Bicarbonate (HCO3a) 11.6 mEq/L (22-26); Base Excess (BEa) -15.9 mEq/L (0 (+/-) 2.5); Calcium, Ionized 0.9 mmol/L (1.12-1.30); Hematocrit-ABG 39.6 % (42.0-52.0); Hemoglobin (Hb) 10.4 g/dL (14.0-18.0); Puncture Site RRA
[2017-10-12] MEDS ORDERED: Heparin 5,000 UNITS/ML VIAL SC SCH (21:00)
--- NOTE | 2017-10-12 21:15 | RAD ---
RADIOGRAPH CHEST 1 VIEW: Date: 10/12/17 Time: 7:34 p.m. HISTORY: 81-year-old male with fever. COMPARISON: 10/08/17. FINDINGS: Again noted are the sternotomy wires and evidence of previous CABG. There is a new finding of consoli dation of the left lower lobe. Endotracheal tube has been placed into the mid thoracic trachea. A lef t internal jugular central vascular catheter has been placed with distal tip overlying the expected l ocation of the proximal SVC. There is a vertically descending catheter to the right of midline from t he neck through the right mediastinum, with distal tip in the proximal aspect of the left upper quadr ant of the abdomen, apparently an NG tube. Perhaps the esophagus is to the right of midline. No pulmo nary edema. The visualized portions of the right lung are grossly clear. IMPRESSION: 1. Status post intubation, central line placement, and NG tube placement. 2. New consolidation of left lower lobe. 3. Evidence of previous coronary artery bypass graft surgery. 4. Cardiomegaly. JAMES [] POS: EDEN
[2017-10-12] MEDS ORDERED: Norepinephrine 8 MG/250 ML BAG IVPB PRN (22:28)
[2017-10-12 23:08] VITALS: TEMP 94.4
[2017-10-12] MEDS: Rosuvastatin 10 MG TAB PO SCH (23:25)
[2017-10-12] MEDS ORDERED: Albumin 25% 25 GM/100 ML BOT IVPB SCH (23:59)
[2017-10-13] MEDS ORDERED: Amiodarone HCl 450 MG, Admixture Fee 1 EACH in Dextrose 5% in Water 250 ML IVPB SCH (00:15)
[2017-10-13 00:49] LABS: Anion Gap 19 mmol/L (10-20); BUN (Urea Nitrogen) 51 mg/dL (8.4-25.7); Calc. Creatinine Clearance 18 mL/min (70-130); Calcium 5.9 mg/dL (7.8-10.44); Carbon Dioxide 36 mmol/L (23-31); Chloride 96 mmol/L (98-107); Estimated GFR-MDRD 17; Glucose 58 mg/dL (83-110); Magnesium 1.8 mg/dL (1.6-2.6); Potassium 5.1 mmol/L (3.5-5.1); Sodium 146 mmol/L (136-145)
[2017-10-13 00:50] LABS: Hemoglobin 6.6 g/dL (14.0-18.0); Mean Corpuscular HGB CONC 34.7 g/dL (32.0-36.0); Mean Corpuscular Volume 97.7 fl (80.0-94.0); Mean Platelet Volume 8.5 fL (7.4-10.4); Platelet Count 173 thou/uL (130-400); RBC Distribution Width 12.8 % (11.5-14.5); Red Blood Cell (RBC) Count 1.93 mill/uL (4.70-6.10); White Blood Cell (WBC) Count 33.5 thou/uL (4.8-10.8)
[2017-10-13 00:52] LABS: Actual Bicarbonate (HCO3a) 21.9 mEq/L (22-26); Base Excess (BEa) -3.2 mEq/L (0 (+/-) 2.5); CO2 Tension 39.2 mmHg (35.0-45.0); Hemoglobin (Hb) 6.3 g/dL (14.0-18.0); O2 Tension (PaO2) 72.4 mmHg (80.0-100.0); pH, Arterial 7.37 (7.35-7.45)
[2017-10-13 00:53] LABS: Calcium, Ionized 0.8 mmol/L (1.12-1.30); Puncture Site RRA
[2017-10-13 00:54] LABS: Band 20 % (5-11); Eosinophils 1 % (0-10); Lymphocytes 3 % (21-51); MDiff Complete? YES; Monocytes 1 % (0-10); Neutrophil 75 % (42-75)
--- NOTE | 2017-10-13 00:57 | OP ---
DATE OF PROCEDURE: 10/12/2017 PREOPERATIVE DIAGNOSES: Severe necrotizing fasciitis, left posterior medial thigh extending down int o the calf with overlying ecchymotic skin and subcutaneus skin, blistering skin, thigh and calf with multiple bullae, acute renal failure, poor intravenous access, coronary artery disease. POSTOPERATIVE DIAGNOSES: Severe necrotizing fasciitis, left posterior medial thigh extending down in to the calf with overlying ecchymotic skin and subcutaneus skin, blistering skin, thigh and calf with multiple bullae, acute renal failure, poor intravenous access, coronary artery disease. PROCEDURES: Right femoral vein Trialysis catheter, left IJ central line, incision and drainage left posterior medial thigh, and left leg above and below the knee with excisional sharp debridement 10 bl anil skin, subcutaneous tissue, thigh, and opening of the deep fascia to the muscular compartments ham strings and gastrocs with culture of purulent material. The pulse technical analyst, pulse evacuation 5 lite rs thigh and calf wound. Wound left open. Gauze dressings applied. Plan return to the operating ro om tomorrow for further washout evaluation. SURGEON: Vernon Duarte M.D. ANESTHESIA: General. ESTIMATED BLOOD LOSS: 40 mL. BLOOD TRANSFUSED. None. PROCEDURE IN DETAIL: The patient was taken to the operating room where under general anesthesia, rig ht groin was prepared with ChloraPrep, draped in routine fashion. Left neck and chest prepared with ChloraPrep, draped in routine fashion. Trocar catheter introduced in the femoral vein. J-wire threa ded, trocar catheter removed. Seldinger technique used placing smaller medium sized dilators over th e J-wire into the femoral vein and the Trialysis catheter in the femoral vein and the iliac vein jose ving the J-wire, securing the catheter with 3-0 nylon suture. Biopatch sterile dressing applied. Ea ch port aspirated blood with saline and heparinized saline solution and injected. Seldinger technique used to place a triple lumen catheter, left IJ placed and a Biopatch removing the J-wire, securing the catheter with 3-0 silk suture and sterile dressing applied. Each port aspirate d blood and flushed with heparin saline solution. In the dorsal lithotomy position, the left posterior thigh and calf to the ankle repair with Betadine , draped in routine fashion. The patient had ecchymotic area with bullae over the posterior medial t high. This ecchymotic necrotic skin was excised sharply and did not bleed at all. Skin and subcutan eous tissue excised down to the fascia back to healthy edges. There was underlying infection with pu rulent bloody material deep to the fascia and surrounding the hamstring muscular layers. This extend ed down across the popliteal fossa into the gastrocs area. Likewise incision was made over the poste rior leg. Wound irrigated. There are muscular compartments and the gastroc irrigated. There was di ssecting purulent material in the muscular compartments. Pulse technical analyst performed and gauze dressin g applied and Mauro wrap performed. The patient transferred to intensive care unit in critical conditi on on the ventilator to undergo dialysis tonight and plan reexploration and wash out the left leg song orrow.
[2017-10-13] MEDS ORDERED: EPINEPHrine 1 MG/10 ML Abboject SYRINGE ONE (01:00)
[2017-10-13] MEDS ORDERED: Sodium Bicarbonate 150 MEQ in Dextrose 5% in Water 1,000 ML IV SCH (01:00)
[2017-10-13] MEDS ORDERED: Magnesium 5 GM/10 ML Abboject SYRINGE ONE (01:00)
[2017-10-13] MEDS ORDERED: Sodium Bicarb 50 MEQ/50 ML Abboject 8.4% SYRINGE ONE ×2 (01:00→01:27)
[2017-10-13] MEDS ORDERED: Vasopressin 40 UNIT, Admixture Fee 1 EACH in Sodium Chloride 0.9% 100 ML IV SCH (01:15)
[2017-10-13] MEDS ORDERED: EPINEPHRINE IVPB SCH (01:30)
[2017-10-13] MEDS ORDERED: SODIUM CHLORIDE IVPB SCH (01:30)
[2017-10-13] MEDS ORDERED: ADMIXTURE FEE IVPB SCH (01:30)
[2017-10-13] MEDS ORDERED: Hydrocortisone Sod Succ/PF 100 mg/2 ml Vial IVP SCH (02:00)
--- NOTE | 2017-10-13 06:33 | PDOC.EVN ---
Event Note - Event Note Event Note: Code elijah called just after midnight this morning. I immediately responded and found pt receiving CPR. was already intbuated, btu taken of ventilator and bagged. PEr report, pt had been trying to get HD, but wasn't tolerating it, and bradied down and pulse was lost. Epi given on my arrival and order, and had spontaneous return of tachycadia and BP. please see code sheet for details. Family notified and i spokje with them on their arrival regarding timeline. i remained at the bedside at patient became normocardic and maintained his BP. Dr Win contacted by nursing, orders received. after a short perior of talking with the family, and monitoring the pt at the bedside, he become progressively hypotensive and bradycardic. Epi re-ordered and more bicarb given and CPR restarted. after almost 15 more minutes of CPR, pt remained in asystole and pulseless, Code was called just before 0130. 85 minutes of critical care was performed at the bedside
--- NOTE | 2017-10-13 08:44 | PRG ---
DATE OF SERVICE: 10/12/2017 NEPHROLOGY PROGRESS NOTE SUBJECTIVE: The patient was seen and examined at bedside. He was slightly short of breath this morn ing and his was at the bedside. OBJECTIVE: GENERAL: This is a well-built male in mild distress. VITAL SIGNS: Temperature 97.5, pulse 83, respiratory rate 20, and blood pressure 120/55. HEENT: Atraumatic, normocephalic. Oral mucosa is moist. NECK: Supple. CARDIOVASCULAR: S1, S2 heard. Rate and rhythm regular. RESPIRATORY: Clear to auscultation. GASTROINTESTINAL: Abdomen is soft. MUSCULOSKELETAL: No tenderness. 2+ edema. DERMATOLOGIC: No skin rash. NEUROLOGIC: Alert and awake and oriented x3. No focal neurologic deficits. Moving all the extremit ies. PSYCHIATRIC: Mood and affect normal. LABORATORY DATA: Sodium is 120, potassium 4.5, bicarbonate is 12, BUN is 75, and creatinine is 5.2. ASSESSMENT AND PLAN: 1. Acute kidney injury secondary to bacteremia with possible sepsis and renal function getting worse . The plan is to start dialysis. The patient is getting fluid overloaded and nausea, but no signifi cant urine output. No hyperkalemia. Acidosis is getting worse. 2. Metabolic acidosis. Plan is to start dialysis. 3. Hyponatremia. We will start dialysis, most likely from fluid overload. 4. Fluid overload. No significant urine output. 5. Anemia, mild. Plan is to start on dialysis. Surgeon consulted and dialysis nurse notified. We will continue dialy sis as tolerated. Continue supportive care and antibiotics.
[2017-10-13] MEDS ORDERED: Pantoprazole 40 MG VIAL IVP SCH (09:00)
[2017-10-13] MEDS ORDERED: Heparin 10,000 UNITS/ 10 ML VIAL ONE (09:41)
--- NOTE | 2017-10-13 10:09 | CON ---
DATE OF CONSULTATION: 10/12/2017 HISTORY OF PRESENT ILLNESS: Vamshi Nieto is an 81-year-old male patient, admitted 10/09/2017 by [facility] ospitalist Service for left leg edema and pain. Apparently, the patient had been to another physicia n last week, who evaluated and sent him home. He has reported he had an ultrasound that showed DVT, but ultrasound at this facility does not show any evidence of DVT. He had blood cultures positive fo r gram-positive cocci. He has been seen this hospitalization, admitted, and kidney failure progresse d. I have been asked to see him to place a dialysis catheter. I was called later to ask if I could also see him for his left thigh problem, as Dr. Briggs is being consulted for this. He has had an MRI demonstrating deep edematous changes, soft tissue edema, suspect necrotizing fasciitis. He has ecch ymosis of the posterior medial skin thigh with blistering of the skin suggestive of necrotizing fasci itis. He has a white count of 20,000, hemoglobin 11.8. Sodium 120; potassium 4.5;, chloride 95; car bon dioxide 12, progressive, from 16, decline; BUN 75 and creatinine 5.27, progressive since admissio n, on admission 41 and 2.67. PAST MEDICAL HISTORY: He has had a past history of chronic kidney disease with intermittent elevatio n of his BUN and intermittent elevation of his creatinine. History of alcohol abuse, currently no us e; history of tobacco abuse, currently nonsmoker. GERD; dyslipidemia; hypertension; and coronary art hyun disease, stable. ALLERGIES: PENICILLIN, MORPHINE, RANOLAZINE. TOBACCO: None. ALCOHOL: None. MEDICATIONS: Metoprolol 25 mg at bedtime; trazodone 50 mg at bedtime; tramadol p.r.n.; fluoxetine da markie; clindamycin 1 p.o. t.i.d.; Xarelto b.i.d., last dose 10/10; ibuprofen t.i.d. p.r.n.; Avodart 0.5 mg daily; isosorbide 1 tab daily; Crestor 40 mg a day; Protonix daily; Flomax 0.4 mg a day. The pat ient this hospitalization has ordered Eliquis, but this has not been given today. PAST SURGICAL HISTORY: Coronary artery bypass grafting, more than 10 years ago; 12/2016, left bimall eolar ankle fracture, PID, closed reduction and open cannulated screw fixation medial malleolus left ankle, Dr. Abdullahi; 06/2017, cystoscopy; TURP, Dr. Givens; Dr. Romero, EGD, 11/2007, and colonosc opy essentially normal; coronary artery bypass grafting 5 vessels, 1997; adenosine Cardiolite stress test normal 2005; cardiac catheterization 12/2014, patent bypasses for 4 grafts patent, mild LV dysfu nction 70% ejection fraction; 04/2014 aortogram runoff 75%-80% right ICA stenosis. PHYSICAL EXAMINATION: VITAL SIGNS: 5 feet 8, 175 pounds, 26 BMI, 97.5, 82, 120/55. HEAD, EARS, EYES, NOSE, AND THROAT: Unremarkable. LUNGS: Clear to auscultation. CARDIAC: Regular rate and rhythm without murmur, rub, or gallop. ABDOMEN: Soft, obese. Well-healed sternotomy scar. Lawrence catheter in place. EXTREMITIES: Right mid forearm IV. Edematous left leg. Extensive cellulitis from his gluteal fold posterior and posterior medial thigh to his knee, posterior medial thigh ecchymosis about 8 cm in ganga meter with blistering skin, intense cellulitis, and induration. Edema of both lower extremities, lef t worse than right. I cannot palpate pedal pulses. IMAGIN10/10/2017, vascular ultrasound, no evidence of DVT, left lower extremity. Renal ultrasoun d, no obstructive uropathy, right superior renal post cyst, distended gallbladder with sludge. LABORATORY DATA: White count 20,000, progressive increase since admission, 14,000; 29% bands on admi ssion, currently 8% bands; hemoglobin 11.8. Sodium 120, potassium 4.5, CO2 of 12, creatinine 5.27, G FR 11. ASSESSMENT: 1. Necrotizing fasciitis, left thigh. Plan incision and drainage and debridement as indicated. 2. Acute renal failure and acidosis, normal potassium and hyponatremia. PLAN: 1. Placement of hemodialysis catheter, right femoral. We would not place a cuffed tunnel due to bogdan teremia. 2. Poor IV access. Plan central line. 3. Coronary artery disease, stable. 4. Peripheral artery disease. 5. History of tobacco abuse. 6. History of transurethral resection of the prostate. 7. Patient has been on anticoagulants, but his Eliquis has been held today. Allergic to PENICILLIN and VANCOMYCIN.
--- NOTE | 2017-10-13 20:24 | EKG ---
Test Reason : Blood Pressure : / mmHG Vent. Rate : 128 BPM Atrial Rate : 129 BPM P-R Int : 000 ms QRS Dur : 100 ms QT Int : 312 ms P-R-T Axes : 000 -02 021 degrees QTc Int : 455 ms Atrial fibrillation with rapid ventricular response with premature ventricular or aberrantly conducte d complexes Incomplete right bundle branch block Cannot rule out Anterior infarct , age undetermined Abnormal ECG When compared with ECG of 08-OCT-2017 13:12, (Unconfirmed) Atrial fibrillation has replaced Sinus rhythm Vent. rate has increased BY 44 BPM Minimal criteria for Anterior infarct are now Present Confirmed by MARNIE ROWE, DR. Zhou ([id number]) on 10/13/2017 8:23:33 PM Referred By: ZEFERINO Confirmed By:DR. Winnie DYE MD
--- NOTE | 2017-10-14 14:59 | DS ---
DATE OF ADMISSION: 10/09/2017 DATE OF DISCHARGE: 10/13/2017 DISCHARGE DIAGNOSES: 1. Septic shock, gram positive bacteremia. 2. Acute renal failure. 3. Necrotizing fasciitis, suspected. 4. Fracture of the patella, left closed. 5. Deep venous thrombosis of left lower extremity. 6. Coronary artery disease. 7. Hyperlipidemia. 8. Hypertension. HISTORY OF PRESENT ILLNESS/HOSPITAL COURSE: Mr. Vamshi Nieto is a nice 81- year-old gentleman, cory, who came to the emergency room with complaints of left leg pain and swelling. He had an ultrasound that showed DVT of his left leg. He also had blood cultures, which came back positive for gram positive cocci. His and daughter brought him back to the hospital the night of presentation because he was getting progressively more swollen on his left leg. He reports that he fell out of bed and was unable to stand and had more pain in his knee and leg after the fall. He had no loss of consciousness, fever, chills, nausea or vomiting. His physical examination was significant for pain on the left leg with swelling, and warmth. He had an x-ray done which showed left-sided comminuted transverse type fracture of the patella. He was then admitted to the ICU for sepsis, left lower leg DVT, gram positive bacteremia and hypotension. He was started on IV vancomycin due to the gram positive bacteremia. Infectious Disease was consulted as well. He was started on Xarelto for DVT treatment. While in the ICU the septic shock was resolved. However, the patient had continually trending up creatinine for which Nephrology was consulted. He also has significant pain in his left thigh and he had an MRI of his lower extremity which showed very extensive myositis involving a large component of portions of the hamstring musculature, quadriceps musculature, abductor musculature and a small portion of the gluteus roberto muscle. Extensive deep fasciitis with considerable intermuscular edematous changes throughout the hip and thigh region was also noted with extensive superficial fasciitis, extensive superficial cellulitis. No evidence of definitive intramuscular abscess or focal intramuscular necrosis or intramuscular gas, although a CT scan will have been more sensitive in identifying a tiny punctate foci of intramuscular gas which will be definitive for necrotizing fasciitis. No evidence of drainable abscess. No evidence of osteomyelitis. General Surgery was immediately consulted where he was taken to the OR for incision, drainage and debridement. He was also scheduled for hemodialysis due to his worsening renal function. Unfortunately, a Code Blue was called, just after midnight for which the nail mill worker responded immediately and the patient was given CPR. He was already intubated, but he was taken off the ventilator and bagged. Per report, he has been trying to get hemodialysis, but was not tolerating it and he bradied down and pulse was lost. He was given epinephrine with spontaneous return of tachycardia and BP. The family was notified and nail mill worker remained at the patient's bedside. He maintained his blood pressure initially but later on, he became progressively hypotensive and bradycardic. Epinephrine was reordered and more bicarbonate was given and CPR restarted. After about 15 more minutes of CPR and the patient remained in asystole and pulseless. The time of was declared at 1:30 a.m. on 2017. Family was notified. MANOLO
[2017-10-18] MEDS ORDERED: Apixaban 5 MG TAB PO SCH (21:00)
== END 2017-10-13 01:36 | disposition expired | DRG 853 ==
LOC: ERS 14:41 → IMCU/EMU 16:11 → CCU 10-12 19:25
PROVIDERS: ADMIT Internal Medicine Addiction Medicine; ATTEND Internal Medicine Addiction Medicine
PROC: 0JBL0ZZ Excision of Right Upper Leg Subcutaneous Tissue and Fascia, Open Approach (ICD-10-PCS; principal; 2017-10-12)
PROC: 5A1D70Z Performance of Urinary Filtration, Intermittent, Less than 6 Hours Per Day (ICD-10-PCS; 2017-10-12)
PROC: 02HV33Z Insertion of Infusion Device into Superior Vena Cava, Percutaneous Approach (ICD-10-PCS; 2017-10-12)
PROC: 5A12012 Performance of Cardiac Output, Single, Manual (ICD-10-PCS; 2017-10-13)
DX: A41.89 Other specified sepsis (principal); J96.01 Acute respiratory failure with hypoxia; R65.21 Severe sepsis with septic shock; M72.6 Necrotizing fasciitis; E44.0 Moderate protein-calorie malnutrition; N17.9 Acute kidney failure, unspecified; E87.2 Acidosis; E87.1 Hypo-osmolality and hyponatremia; E87.0 Hyperosmolality and hypernatremia; D64.9 Anemia, unspecified; N40.0 Benign prostatic hyperplasia without lower urinary tract symptoms; M60.9 Myositis, unspecified; I25.10 Atherosclerotic heart disease of native coronary artery without angina pectoris; E78.5 Hyperlipidemia, unspecified; I10 Essential (primary) hypertension; K21.9 Gastro-esophageal reflux disease without esophagitis; M19.90 Unspecified osteoarthritis, unspecified site; E87.70 Fluid overload, unspecified; Z68.26 Body mass index [BMI] 26.0-26.9, adult; Z87.891 Personal history of nicotine dependence; Z88.5 Allergy status to narcotic agent; Z88.0 Allergy status to penicillin; Z79.899 Other long term (current) drug therapy; Z95.1 Presence of aortocoronary bypass graft
CPT/HCPCS: 36415; 36416; 36430; 71045; 76770; 80048; 80053; 80202; 81003; 81015; 82436; 82570; 82805; 83605; 83735; 84133; 84300; 85025; 86704; 86706; 86803; 86850; 86900; 86901; 87040; 87070; 87077; 87086; 87147; 87186; 87205; 87340; 88305; 90935; 92950; 93005; 93010; 94002; 94003; 96361; 96365; 96374; 96375; 99213; A4216; C1752; C1769; G0257; G0463; G8978-GP-CL; G8979-GP-CK; J0171; J0282; J0670; J1642; J1644; J2001; J2250; J2270; J2405; J2704; J3370; J3475; J7050; J7070; P9016; P9047